=== PATIENT | male | born 1955 | race Caucasian/White ===

== ENCOUNTER → 2016-03-29 | Outpatient (CLI) | payer BC | END | disposition home or self-care (01) | LOC: C.LAB 13:59 | PROVIDERS: ATTEND Urology | DX: N40.1 Benign prostatic hyperplasia with lower urinary tract symptoms (principal); Z12.6 Encounter for screening for malignant neoplasm of bladder ==

== ENCOUNTER → 2016-04-09 | Outpatient (CLI) | payer BC | END | disposition home or self-care (01) | LOC: C.LABSPEC 04-08 11:13 | PROVIDERS: ATTEND Urology | DX: Z12.5 Encounter for screening for malignant neoplasm of prostate (principal); R82.8 Abnormal findings on cytological and histological examination of urine ==

== ENCOUNTER → 2016-10-21 | Outpatient (CLI) | payer BC ==
[2016-10-21 09:43] LABS: CHOLESTEROL/HDL RATIO 3.2
== END | disposition home or self-care (01) ==
LOC: C.LAB 08:26
DX: E78.5 Hyperlipidemia, unspecified (principal)

== ENCOUNTER 2025-02-16 15:34 | Inpatient (IN) ==
[2025-02-16] MEDS: ALBUT/IPRATROP 3MG/0.5MG NEB 3 ML VIAL INH STA (16:13)
--- NOTE | 2025-02-16 16:30 | XRay Report ---
Chest radiograph, one view History: Dyspnea. Comparison: March 25, 2024. Findings: Likely esophageal stent. This is not present on prior exam. Calcified atherosclerotic changes of the thoracic aorta. Numerous pulmonary nodules noted bilaterally. There is persistent elevation of the right hemidiaphragm with absence of a normal right hilar angle secondary to ground glass opacity at this level. There appears to be tenting of the right hemidiaphragm. Poorly defined right cardiophrenic angle. Likely small pleural effusion on the right. Impression: Numerous pulmonary nodules most worrisome for neoplastic process. Infectious etiology is not excluded. Recommend CT for further characterization. Please see above for details. Electronically signed by Ilya Guzman 02-16-2025 4:30 PM
[2025-02-16 16:38] LABS: Base Excess VBG 3.2 mEq/L; HCO3 VBG 27 mmol/L; Oxygen Saturation VBG 100.0 %; PCO2 VBG 37 mmHg (38-50); PO2 VBG 194 mmHg; pH VBG 7.47 (7.36-7.41)
--- NOTE | 2025-02-16 16:47 | Emergency Department Note ---
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 Patient is accompanied by EMS and family who provide additional history. Worsening dyspnea at rest. He thought this was related to oxycodone but continues despite cessation of the medication. The patient follows at the [facility] for ongoing treatment and management of his metastatic sarcoma. Patient is currently managed with gemcitabine with last dose last Friday. They deny fever or chills. No cough or congestion. Denies chest pain or palpitations. No shortness of breath. They deny abdominal pain, nausea and vomiting. No urinary complaints. noticed darker urine. No hematochezia or melena. No recent changes in bowel movements. Patient denies recent changes in medications or OTC supplements. Patient offers no other complaints, today. ADDITIONAL HISTORY OBTAINED: Per HPI Chronic Medical/Social Conditions Affecting Care: Per HPI PAST MEDICAL HISTORY: See Below PAST SURGICAL HISTORY: See Below FAMILY HISTORY: See Below SOCIAL HISTORY: See Below HOME MEDICATIONS: See Below ALLERGIES: See Below VITALS: See Below PHYSICAL EXAMINATION: GENERAL: Sitting up in bed, alert, ill appearing, well nourished, no distress, non-toxic EYE EXAM: conjunctival pallor. PERRL and EOM's grossly intact. OROPHARYNX: no exudate, no erythema, lips, buccal mucosa, and tongue normal and mucous membranes are moist NECK: supple, no nuchal rigidity, no adenopathy, non-tender LUNGS: Tachypnea. Mild expiratory wheezing, Normal chest wall mechanics HEART: no murmurs, tachycardic rate, regular rhythm ABDOMEN: abdomen soft, non-tender, no masses, no rebound or guarding. BACK: Back is symmetrical on inspection and there is no deformity, no midline tenderness, no CVA tenderness. SKIN: no rashes and no bruising UPPER EXTREMITIES: upper extremities are grossly normal. LOWER EXTREMITIES: No pitting edema. NEURO EXAM: Normal sensorium, GCS 15, normal speech, no gross weakness of arms, no gross weakness of legs. MEDICAL DECISION MAKING: Differential diagnoses includes but not limited to symptomatic anemia, metastatic disease burden, pleural effusion, ACS, unstable angina, dysrhythmia, PNA, hypervolemia/pulmonary edema, CHF exacerbation, COPD exacerbation, PE, pneumothorax, pericardial effusion, cardiac tamponade, anxiety/psychogenic, viral URI In summary, this is a 69 year old male who presented with dyspnea. Differential as above. Nursing notes and pertinent past medical records reviewed. Vital signs reviewed and the patient is hypoxic, tachypneic and tachycardia. History and presentation revealed extensive sarcoma with recent new chemotherapy. Suspect etiologies including worsening metastatic disease or chemotherapy side effect. Physical examination revealed as above. As a result of my initial evaluation, IV access was established and the patient was placed on CCRM. Therapeutics ordered include further oxygenation support with increased LFNC and Duoneb . Diagnostics interpreted by me include EKG and cardiac monitoring as listed below: -Cardiac Monitoring: An order was placed for continuous cardiac monitoring. The monitor shows a rate of 100-120 with regular rhythm. -ECG: Sinus tachycardia at a rate of [address] segment changes to suggest STEMI. Intervals are within normal limits otherwise. Patient completed laboratory studies and imaging. Results independently interpreted by me are severe anemia and mild thrombocytopenia. There is no significant electrolyte derangements or significant kidney dysfunction from baseline. No changes in LFTs. The patient was managed with close monitoring and duoneb. Duoneb failed to improve symptoms. I discussed with patient symptoms today are likely multifactorial. His symptoms are consistent with acute on chronic hypoxemic respiratory failure with increased level of nasal cannula use and dyspnea at rest. This is likely due to to increasing tumor burden of his lung parenchyma as well as right sided pleural effusion. I do feel there is a significant factor of his symptoms regarding his acute anemia from baseline. He has only required 1 blood transfusion in the past. The patient is likely experiencing acute anemia in the setting of recent initiation of gemcitabine as hematologic toxicity is a common side effect. Other known side effects include capillary leak syndrome and hypersensitivity reactions. Could be a component of pulmonary toxicity or increased edema as well. The patient and his were consented for blood products. Irradiated blood products with 2 units were ordered. Given concerns for tenuous volume status and pulmonary dysfunction, will run 2 units of blood products each over 4 hours. Patient require hospital admission. He may require thoracentesis when he is stabilized from a blood product standpoint. Ultimately, the decision was made to admit the patient for symptomatic anemia, metastatic cancer with lung burden and large pleural effusion. I discussed the case with the hospitalist service via telephone/Tiger[employer] and they are agreeable to admit the patient to their services. Based on the above, including the patient's age, coexisting illnesses, labs, imaging, and exam findings the decision to treat as an inpatient. I discussed the patient with the hospitalist team who recommended admission to their services. They received the medications, treatments, interventions indicated above and their condition remained guarded. I discussed my findings with the patient and their family and they understand and agree with the treatment plan. All patient / family questions were answered to their satisfaction. Please note there was delay in blood transfusion as the lab struggled with obtaining blood for T&S. I assisted utilizing US and able to obtain labs. I again asked nursing staff to reach out to the line team for further PIV establishment ([id number]). Patient was originally discussed with Dr. Reyes for admission. Patient was then discussed with Dr. Francis. From , he follows with [facility] and [employer] HATCH[employer] INSPECTOR can be reached at [phone]. Attempted call without success. Will touch base with [facility] team to discuss his presentation, today ([id number]). Discussed with Dr. Ascencio's colleague, Dr. Keller. He does agree presentation today is multifactorial. He does think the patient would benefit from transfusion. He would not transfuse platelets at this time. He does recommend a/c hold and potential thoracentesis/CT in the coming days. Consults/Care Managements Discussions: Per [facility] treatment provided: See above Procedures: None Critical Care: I have personally spent 35 minutes of critical care time in direct management of this patient. This includes bedside care, interpretation of diagnostic studies, and testing, discussion with consultants, patient, and family members, and other require inpatient management activities. This 35 minutes is in excess of all separately billable procedures. The chart was completed utilizing [employer] voice recognition software. Grammatical errors, random word insertions, pronoun errors, and incomplete sentences are an occasional consequence of this system due to software limitations, ambient noise, and hardware issues. Any formal questions or concerns about the content, text, or information contained within the body of this dictation should be directly addressed to the physician for clarification. 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) Symptomatic anemia (Acute) Pleural effusion on right (Acute) Metastatic sarcoma to lung (Chronic) Benign prostatic hyperplasia with urinary obstruction (Chronic) Medical History (Updated 02/17/25 @ 17:52 by Vlad Ariza DO) Actinic keratosis Gross hematuria Surgical History (Updated 02/17/25 @ 10:39 by Garcia Gonzales DO) S/P lobectomy of lung Social History Smoking Status: Never smoker Hx Alcohol Use: No Hx Substance Use: No Preferred Language: Persian Communication Ability: Effective Horticultural Worker Required: No Beliefs That Will Affect Care: None Current Living Situation: Spouse Feels Safe at Home: Yes Safety Concerns: Feels Safe At This Time Assistive Devices: Oxygen - Continuous and Wheelchair Allergies Allergies Allergy/AdvReac Type Severity Reaction Status Date / Time Iodinated Contrast Media Allergy Intermediate TICKLE IN Verified 02/16/25 18:03 THROAT "TOLD NOT TO TAKE" Home Meds Home Medications Medication Instructions Recorded Confirmed apixaban 5 mg tablet (Eliquis) 5 mg PO BID 09/28/20 02/16/25 rosuvastatin 10 mg tablet 10 mg PO HS 09/16/23 02/16/25 vit C 250 mg-E 90 mg-zinc 40 1 tab PO AMPM 09/16/23 02/16/25 mg-copper 1 [id number] chew tablet (PreserVision AREDS-2) cholecalciferol (vitamin D3) 10 50 mcg PO DAILY 02/16/25 02/16/25 mcg/drop (400 unit/drop) oral drops coQ10 (ubiquinol) 200 mg capsule 200 mg PO DAILY 02/16/25 02/16/25 digoxin 125 mcg (0.125 mg) tablet 125 mcg PO DAILY 02/16/25 02/16/25 diltiazem HCl 30 mg tablet 30 mg PO DAILY 02/16/25 02/16/25 tamsulosin 0.4 mg capsule 0.4 mg PO DAILY 02/16/25 02/16/25 Results & Data (ED) Vital Signs Vital Signs - 24 hr 02/16/25 17:42 02/16/25 17:51 02/16/25 18:00 Pulse Rate 120 H 119 H Pulse Rate [Apical] 118 H Pulse Rate from SpO2 Sensor 121 H 119 H Respiratory Rate 34 H 43 H 22 Blood Pressure 116/76 Blood Pressure [Right Arm] 103/72 Blood Pressure Mean 89 Blood Pressure Mean [Right Arm] 82 Pulse Oximetry 100 100 100 Oxygen Delivery Method Nasal Cannula Nasal Cannula Oxygen Flow Rate 3 4 02/16/25 18:42 Pulse Rate Pulse Rate [Apical] Pulse Rate from SpO2 Sensor Respiratory Rate Blood Pressure Blood Pressure [Right Arm] Blood Pressure Mean Blood Pressure Mean [Right Arm] Pulse Oximetry 98 Oxygen Delivery Method Nasal Cannula Oxygen Flow Rate 4 Laboratory Data 02/17/25 16:08 02/17/25 05:26 Lab Results 02/16/25 02/16/25 02/16/25 Range/Units 16:00 16:05 18:29 WBC 5.23 (4.8-10.8) K/ul RBC 2.05 L (4.70-6.10) M/uL Hgb 5.4 L* (14.0-18.0) g/dL Hct 17.6 L* (42.0-52.0) % MCV 85.9 (80.0-100.0) fL MCH 26.3 (25.0-34.0) pg MCHC 30.7 L (32.0-36.0) g/dL RDW Std Deviation 63.5 H (36.4-46.3) fL RDW Coeff of Librado 21.6 H (11.5-14.5) % Plt Count 64 L (130-400) K/uL MPV 10.7 (9.4-12.4) fL Immature Gran % (Auto) 0.4 % Neut % (Auto) 74.7 % Lymph % (Auto) 7.1 % [place] % (Auto) 17.2 % Eos % (Auto) 0.4 % Baso % (Auto) 0.2 % Neut # (Auto) 3.91 (1.40-6.50) K/uL Lymph # (Auto) 0.37 L (1.20-3.40) K/uL [place] # (Auto) 0.90 H (0.11-0.59) K/uL Eos # (Auto) 0.02 (0.00-0.50) K/uL Baso # (Auto) 0.01 (0.00-0.20) K/uL Immature Gran # (Auto) 0.02 (0.01-0.20) K/uL Absolute Nucleated RBC 0.02 (0.00-0.12) K/uL Nucleated RBC % (auto) 0.4 % Polychromasia 1+ Anisocytosis Present VBG pH 7.47 H (7.36-7.41) VBG pCO2 37 L (38-50) mmHg VBG pO2 194 mmHg VBG HCO3 27 mmol/L VBG O2 Saturation 100.0 % VBG Base Excess 3.2 mEq/L Sodium 139 (136-145) mmol/L Potassium 4.1 (3.5-5.1) mmol/L Chloride 103 (98-107) mmol/L Carbon Dioxide 27 (21-32) mmol/L Anion Gap 9 (3-11) BUN 18 (6-23) mg/dl Creatinine 0.34 L (0.6-1.4) mg/dl Est Cr Clr Drug Dosing 189.0 ml/min eGFR 123.28 BUN/Creatinine Ratio 52.9 H (10-20) Glucose 96 (70-99(Fasting)) mg/dl Calcium 8.4 L (8.6-10.3) mg/dl Magnesium 2.0 (1.7-2.4) mg/dl Total Bilirubin 1.3 H (0.2-1.0) mg/dl AST 7 L (13-39) U/L ALT 10 (7-52) U/L Alkaline Phosphatase 157 H (34-104) U/L Troponin I High Sens 5.6 (0-20) pg/ml B-Natriuretic Peptide 44 (0-100) pg/ml Total Protein 5.7 L (6.0-8.3) gm/dl Albumin 2.8 L (3.4-5.0) gm/dl Globulin 2.9 (2.5-4.0) gm/dl Albumin/Globulin Ratio 1.0 (0.9-2) Adenovirus (PCR) Not Detected (NotDetected) B. pertussis DNA (PCR) Not Detected (NotDetected) B.parapertussis DNA PCR Not Detected (NotDetected) C. pneumoniae DNA (PCR) Not Detected (NotDetected) Coronavirus OC43 (PCR) Not Detected (NotDetected) Coronavirus HKU1 (PCR) Not Detected (NotDetected) Coronavirus 229E (PCR) Not Detected (NotDetected) SARS-CoV-2 (PCR) Not Detected (NotDetected) Coronavirus NL63 (PCR) Not Detected (NotDetected) Human Metapneumovir PCR Not Detected (NotDetected) Influenza Type A (PCR) Not Detected (NotDetected) Influenza Type B (PCR) Not Detected (NotDetected) M. pneumoniae (PCR) Not Detected (NotDetected) Parainfluenza 1 (PCR) Not Detected (NotDetected) Parainfluenza 2 (PCR) Not Detected (NotDetected) Parainfluenza 3 (PCR) Not Detected (NotDetected) Parainfluenza 4 (PCR) Not Detected (NotDetected) RSV (PCR) Not Detected (NotDetected) Entero/Rhino (PCR) Not Detected (NotDetected) Blood Type A Positive Blood Type Recheck Antibody Screen NEGATIVE Crossmatch See Detail 02/16/25 Range/Units 18:33 WBC (4.8-10.8) K/ul RBC (4.70-6.10) M/uL Hgb (14.0-18.0) g/dL Hct (42.0-52.0) % MCV (80.0-100.0) fL MCH (25.0-34.0) pg MCHC (32.0-36.0) g/dL RDW Std Deviation (36.4-46.3) fL RDW Coeff of Librado (11.5-14.5) % Plt Count (130-400) K/uL MPV (9.4-12.4) fL Immature Gran % (Auto) % Neut % (Auto) % Lymph % (Auto) % Ziebach % (Auto) % Eos % (Auto) % Baso % (Auto) % Neut # (Auto) (1.40-6.50) K/uL Lymph # (Auto) (1.20-3.40) K/uL [place] # (Auto) (0.11-0.59) K/uL Eos # (Auto) (0.00-0.50) K/uL Baso # (Auto) (0.00-0.20) K/uL Immature Gran # (Auto) (0.01-0.20) K/uL Absolute Nucleated RBC (0.00-0.12) K/uL Nucleated RBC % (auto) % Polychromasia Anisocytosis VBG pH (7.36-7.41) VBG pCO2 (38-50) mmHg VBG pO2 mmHg VBG HCO3 mmol/L VBG O2 Saturation % VBG Base Excess mEq/L Sodium (136-145) mmol/L Potassium (3.5-5.1) mmol/L Chloride (98-107) mmol/L Carbon Dioxide (21-32) mmol/L Anion Gap (3-11) BUN (6-23) mg/dl Creatinine (0.6-1.4) mg/dl Est Cr Clr Drug Dosing ml/min eGFR BUN/Creatinine Ratio (10-20) Glucose (70-99(Fasting)) mg/dl Calcium (8.6-10.3) mg/dl Magnesium (1.7-2.4) mg/dl Total Bilirubin (0.2-1.0) mg/dl AST (13-39) U/L ALT (7-52) U/L Alkaline Phosphatase (34-104) U/L Troponin I High Sens (0-20) pg/ml B-Natriuretic Peptide (0-100) pg/ml Total Protein (6.0-8.3) gm/dl Albumin (3.4-5.0) gm/dl Globulin (2.5-4.0) gm/dl Albumin/Globulin Ratio (0.9-2) Adenovirus (PCR) (NotDetected) B. pertussis DNA (PCR) (NotDetected) B.parapertussis DNA PCR (NotDetected) C. pneumoniae DNA (PCR) (NotDetected) Coronavirus OC43 (PCR) (NotDetected) Coronavirus HKU1 (PCR) (NotDetected) Coronavirus 229E (PCR) (NotDetected) SARS-CoV-2 (PCR) (NotDetected) Coronavirus NL63 (PCR) (NotDetected) Human Metapneumovir PCR (NotDetected) Influenza Type A (PCR) (NotDetected) Influenza Type B (PCR) (NotDetected) M. pneumoniae (PCR) (NotDetected) Parainfluenza 1 (PCR) (NotDetected) Parainfluenza 2 (PCR) (NotDetected) Parainfluenza 3 (PCR) (NotDetected) Parainfluenza 4 (PCR) (NotDetected) RSV (PCR) (NotDetected) Entero/Rhino (PCR) (NotDetected) Blood Type Blood Type Recheck A Positive Antibody Screen Crossmatch Administered Medications Piperacillin Sod/Tazobactam Sod (Zosyn) 4.5 gm in 100 mls @ 25 mls/hr IV Q8H FLOR; Protocol Stop: 02/24/25 01:59 Last Infusion: 02/17/25 13:38 Dose: Infused Documented By: Admin: 02/17/25 09:36 Dose: 25 mls/hr Documented By: Infusion: 02/17/25 05:06 Dose: Infused Documented By: Admin: 02/17/25 01:02 Dose: 25 mls/hr Documented By: JACK Pantoprazole Sodium (Protonix) 40 mg in 10 mls @ 5 mls/min IV DAILY FLOR Stop: 03/19/25 08:59 Last Admin: 02/17/25 09:36 Dose: 5 mls/min Documented By: LOPEZ Multivitamins/Minerals (Cerovite Adv Formula Tab) 1 tab PO DAILY FLOR Stop: 03/18/25 22:25 Last Admin: 02/17/25 09:37 Dose: 1 tab Documented By: Admin: 02/17/25 00:35 Dose: 1 tab Documented By: JACK Rosuvastatin Calcium (Rosuvastatin Calcium 10 Mg Tab) 10 mg PO FLOR Stop: 03/18/25 22:20 Last Admin: 02/16/25 22:47 Dose: 10 mg Documented By: JACK Tamsulosin HCl (Tamsulosin Hcl 0.4 Mg Cap) 0.4 mg PO DAILY FLOR Stop: 03/19/25 08:59 Last Admin: 02/17/25 09:37 Dose: 0.4 mg Documented By: LOPEZ Vitamin D (Cholecalciferol 25 Mcg (1000 Units) Tab) 50 mcg PO DAILY FLOR Stop: 03/19/25 08:59 Last Admin: 02/17/25 09:37 Dose: 50 mcg Documented By: LOPEZ Discontinued Medications Albuterol (Albut/Ipratrop 3mg/0.5mg Neb 3 Ml Vial) 3 ml INH NOW STA Stop: 02/16/25 15:40 Last Admin: 02/16/25 16:13 Dose: 3 ml Documented By: MANDY Hydrocortisone Sodium Succinate (Hydrocortisone Sod Succinate 100 Mg/2 Ml Vial) 100 mg IV NOW STA Stop: 02/16/25 20:05 Last Admin: 02/16/25 21:24 Dose: 100 mg Documented By: ascencion Albumin Human (Albumin 25%) 25 gm in 100 mls @ 50 mls/hr IV Q2H FLOR Stop: 02/17/25 00:14 Last Infusion: 02/17/25 03:35 Dose: Infused Documented By: Admin: 02/17/25 01:35 Dose: 50 mls/hr Documented By: Infusion: 02/16/25 23:28 Dose: Infused Documented By: Admin: 02/16/25 21:28 Dose: 50 mls/hr Documented By: ascencion Hydrocortisone Sodium (Succinate 50 mg/ Syringe) 1 mls @ 4 mls/min IV Q6H FLOR Stop: 03/19/25 01:59 Last Admin: 02/17/25 01:02 Dose: 4 mls/min Documented By: JACK Piperacillin Sod/Tazobactam Sod (Zosyn) 4.5 gm in 100 mls @ 25 mls/hr IV ONE ONE; Protocol Stop: 02/17/25 00:14 Last Admin: 02/17/25 00:34 Dose: Not Given Documented By: JACK Pantoprazole Sodium (Protonix) 40 mg in 10 mls @ 5 mls/min IV NOW ONE Stop: 02/16/25 20:26 Last Admin: 02/16/25 21:28 Dose: 5 mls/min Documented By: ascencion Imaging Data Radiologist's Impression: Chest X-Ray 02/16/25 15:40 Chest radiograph, one view History: Dyspnea. Comparison: March 25, 2024. Findings: Likely esophageal stent. This is not present on prior exam. Calcified atherosclerotic changes of the thoracic aorta. Numerous pulmonary nodules noted bilaterally. There is persistent elevation of the right hemidiaphragm with absence of a normal right hilar angle secondary to ground glass opacity at this level. There appears to be tenting of the right hemidiaphragm. Poorly defined right cardiophrenic angle. Likely small pleural effusion on the right. Impression: Numerous pulmonary nodules most worrisome for neoplastic process. Infectious etiology is not excluded. Recommend CT for further characterization. Please see above for details. Electronically signed by Ilya Guzman 02-16-2025 4:[address] 02/16/25 16:29 CT chest without contrast. History: Extensive sarcoma. Evaluate for pneumonia. Comparison: Correlation earlier same day plain film. Technique: Helical CT imaging of the chest performed without IV contrast Dose reduction techniques were achieved by using automatic exposure control and/or adjustment of mA and/or kV according to patient size and/or use of iterative reconstruction technique. Findings: Loan Operations Manager film demonstrates no abnormality. Lung windows demonstrate numerous bilateral noncalcified pulmonary nodules and a few masses most consistent with metastatic disease. Motion limits portions of the evaluation. Mild ground glass densities and increased reticular markings of the left upper lobe. Absence of right upper lobe consistent with pneumonectomy changes. Soft tissue windows demonstrate superior vena cava stent. Large right-sided pleural effusion. There is a loculated fluid collection along the ventral right hemithorax what appears to be pleural space. Continuation changes consistent with nodules and masses at the level of the pleura along the right pulmonary base most worrisome for for metastases. This extends into the region of the right upper abdominal quadrant. Soft tissue masslike process along the ventral aspect of the left kidney noted. Additional mediastinal nodules. Bone windows demonstrate no acute osseous process. Impression: 1. Numerous bilateral nodules and masses consistent with metastatic disease with likely mediastinal and pleural involvement. Additional indeterminant left renal mass. 2. Ground glass densities with prominent interstitial markings left pulmonary apex. Inflammatory or infectious pneumonitis at this level not excluded. 3. Large right-sided pleural effusion with additional loculated pocket along the ventral right hemithorax. Please see above for details. Electronically signed by Ilya Guzman 02-16-2025 6:08 PM Discharge Plan Visit Data Chief Complaint: Shortness of Breath/Dyspnea Stated Complaint: SOB ED Provider: Vlad Ariza Discharge Problem: Symptomatic anemia, Thrombocytopenia, Acute and chronic respiratory failure, Pleural effusion, Cancer, metastatic to lung Patient Disposition: Admitted As Inpatient Condition: Serious Discharge Instructions Interventions: ED Discharge Assessment Last Done: 02/16/25 22:20
[2025-02-16 16:58] LABS: Alanine Aminotransferase 10.0 U/L (7-52); Albumin Globulin Ratio 1.0 (0.9-2); Albumin Level 2.8 gm/dl (3.4-5.0); Alkaline Phosphatase 157.0 U/L (34-104); Anion Gap 9.0 (3-11); Bilirubin,Total 1.3 mg/dl (0.2-1.0); Blood Urea Nitrogen 18.0 mg/dl (6-23); Calcium 8.4 mg/dl (8.6-10.3); Carbon Dioxide 27.0 mmol/L (21-32); Chloride 103.0 mmol/L (98-107); Creatinine Clr Calc Pharmacy 189.0 ml/min; Globulin 2.9 gm/dl (2.5-4.0); Glucose 96.0 mg/dl (70-99(Fasting)); Magnesium 2.0 mg/dl (1.7-2.4); Potassium 4.1 mmol/L (3.5-5.1); Sodium 139.0 mmol/L (136-145); Total Protein 5.7 gm/dl (6.0-8.3)
[2025-02-16 16:58] LABS: Chlamydia pneumoniae PCR Not Detected (NotDetected); Coronavirus 229E PCR Not Detected (NotDetected); Coronavirus CoV-2 (COVID19)PCR Not Detected (NotDetected); Coronavirus HKU1 PCR Not Detected (NotDetected); Coronavirus NL63 PCR Not Detected (NotDetected); Coronavirus OC43PCR Not Detected (NotDetected); Human Metapneumovirus PCR Not Detected (NotDetected); Parainfluenza Virus 1 PCR Not Detected (NotDetected); Parainfluenza Virus 2 PCR Not Detected (NotDetected); Parainfluenza Virus 3 PCR Not Detected (NotDetected); Parainfluenza Virus 4 PCR Not Detected (NotDetected); Respiratory Syncytial VirusPCR Not Detected (NotDetected); Rhinovirus/Enterovirus PCR Not Detected (NotDetected)
[2025-02-16 17:01] LABS: Hematocrit (blood only) 17.6 % (42.0-52.0); Hemoglobin 5.4 g/dL (14.0-18.0); Mean Corpuscular Hemoglobin 26.3 pg (25.0-34.0); Mean Corpuscular Volume 85.9 fL (80.0-100.0); Platelet Count 64 K/uL (130-400); RDW Standard Deviation 63.5 fL (36.4-46.3); Red Blood Count 2.05 M/uL (4.70-6.10); White Blood Count 5.23 K/ul (4.8-10.8)
[2025-02-16] MEDS ORDERED: SODIUM CHLORIDE 0.9% 100 ML IV PRN (17:01)
[2025-02-16 17:09] LABS: Anisocytosis Present; Immature Granulocytes # (auto) 0.02 K/uL (0.01-0.20); Immature Granulocytes % (auto) 0.4 %; Polychromasia 1+
--- NOTE | 2025-02-16 18:09 | CT Scan Report ---
CT chest without contrast. History: Extensive sarcoma. Evaluate for pneumonia. Comparison: Correlation earlier same day plain film. Technique: Helical CT imaging of the chest performed without IV contrast Dose reduction techniques were achieved by using automatic exposure control and/or adjustment of mA and/or kV according to patient size and/or use of iterative reconstruction technique. Findings: Commutator Inspector film demonstrates no abnormality. Lung windows demonstrate numerous bilateral noncalcified pulmonary nodules and a few masses most consistent with metastatic disease. Motion limits portions of the evaluation. Mild ground glass densities and increased reticular markings of the left upper lobe. Absence of right upper lobe consistent with pneumonectomy changes. Soft tissue windows demonstrate superior vena cava stent. Large right-sided pleural effusion. There is a loculated fluid collection along the ventral right hemithorax what appears to be pleural space. Continuation changes consistent with nodules and masses at the level of the pleura along the right pulmonary base most worrisome for for metastases. This extends into the region of the right upper abdominal quadrant. Soft tissue masslike process along the ventral aspect of the left kidney noted. Additional mediastinal nodules. Bone windows demonstrate no acute osseous process. Impression: 1. Numerous bilateral nodules and masses consistent with metastatic disease with likely mediastinal and pleural involvement. Additional indeterminant left renal mass. 2. Ground glass densities with prominent interstitial markings left pulmonary apex. Inflammatory or infectious pneumonitis at this level not excluded. 3. Large right-sided pleural effusion with additional loculated pocket along the ventral right hemithorax. Please see above for details. Electronically signed by Ilya Guzman 02-16-2025 6:08 PM
[2025-02-16] MEDS ORDERED: ALBUT/IPRATROP 3MG/0.5MG NEB 3 ML VIAL NEB PRN (20:32)
--- NOTE | 2025-02-16 20:35 | History & Physical Report ---
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 He presents to the emergency department with shortness of breath and dyspnea on exertion present over the past number of weeks, worsening over the past 2 days. Workup in the emergency department including laboratories with hemoglobin of 5.4, with report of family noting blood in urine. Patient has had intermittent diarrhea and constipation, typically precipitated by taking a bowel regimen after getting constipated. His overall food intake has been significantly reduced, with subsequent weight loss. He his last meal today was granola and oatmeal at breakfast. EKG and rhythm monitor showed sinus tachycardia and 115-118 range. His last dose of Eliquis was the morning of 02/15. He has been on a course of prednisone a few months ago, to stimulate appetite, but was discontinued due to concern for long-term use of prednisone. The only travel the patient has had is back and forth to [facility]. Patient was referred to the [facility] service for further evaluation and treatment. The ED has pending orders for 2 units of PRBCs to be transfused. Anemia requiring transfusion- Hemoglobin 5.4, with most recent on 12/23/2024 of 10.1. reports that she thinks she has noticed blood in his urine, which she has had a history of. No change in bowel pattern suggestive of blood. He does tend to get constipated, and then after taking a bowel regimen such as MiraLAX x 3 has loose stools for a while. Hemoccult stools ED is ordered 2 units PRBCs, leukoreduced and irradiated. Repeat CBC with differential, chemistry profile, magnesium, PT/INR/PTT in a.m. Hold apixaban, with last dose being the morning of 02/16. 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 Consult pulmonology. Pleural effusion appears loculated as well. Placed on Zosyn 4.5 g IV every 8 hours MRSA swab Respiratory BioFire panel negative DuoNebs every 2 hours as needed Patient was on a course of prednisone for several weeks a few months ago. Give hydrocortisone 100 mg IV now, then 50 mg IV every [address] Ascencio at [facility] A-fib/flutter- Presently in sinus tachycardia with rate 115 118. Heart rate is compensatory at this point. Systolic blood pressure in the low 100s. Checking a digoxin level Otherwise can be continued in the a.m. Hold diltiazem 30 mg which he takes daily. Plan to resume apixaban after thoracentesis, and after verification if there is no GI bleed or significant bleeding. 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 He presents to the emergency department with shortness of breath and dyspnea on exertion present over the past number of weeks, worsening over the past 2 days. Workup in the emergency department including laboratories with hemoglobin of 5.4, with report of family noting blood in urine. Patient has had intermittent diarrhea and constipation, typically precipitated by taking a bowel regimen after getting constipated. His overall food intake has been significantly reduced, with subsequent weight loss. He his last meal today was granola and oatmeal at breakfast. EKG and rhythm monitor showed sinus tachycardia and 115-118 range. His last dose of Eliquis was the morning of 02/15. He has been on a course of prednisone a few months ago, to stimulate appetite, but was discontinued due to concern for long-term use of prednisone. The only travel the patient has had is back and forth to [facility]. Patient was referred to the [facility] service for further evaluation and treatment. The ED has pending orders for 2 units of PRBCs to be transfused. Allergies Allergy/AdvReac Type Severity Reaction Status Date / Time Iodinated Contrast Media Allergy Intermediate TICKLE IN Verified 02/16/25 18:03 THROAT "TOLD NOT TO TAKE" Home Medications Medication Instructions Recorded Confirmed Type apixaban 5 mg tablet (Eliquis) 5 mg PO BID 09/28/20 02/16/25 History rosuvastatin 10 mg tablet 10 mg PO HS 09/16/23 02/16/25 History vit C 250 mg-E 90 mg-zinc 40 1 tab PO AMPM 09/16/23 02/16/25 History mg-copper 1 [id number] chew tablet (PreserVision AREDS-2) cholecalciferol (vitamin D3) 10 50 mcg PO DAILY 02/16/25 02/16/25 History mcg/drop (400 unit/drop) oral drops coQ10 (ubiquinol) 200 mg capsule 200 mg PO DAILY 02/16/25 02/16/25 History digoxin 125 mcg (0.125 mg) tablet 125 mcg PO DAILY 02/16/25 02/16/25 History diltiazem HCl 30 mg tablet 30 mg PO DAILY 02/16/25 02/16/25 History tamsulosin 0.4 mg capsule 0.4 mg PO DAILY 02/16/25 02/16/25 History Past Med/Surg History Problem List (Updated 02/16/25 @ 21:20 by Ramirez Francis MD) Pleural effusion on right Anemia requiring transfusions Metastatic sarcoma to lung Actinic keratosis (Acute) Benign prostatic hyperplasia with urinary obstruction (Acute) Gross hematuria (Acute) Medical History (Updated 02/16/25 @ 21:20 by Ramirez Francis MD) Hypercholesterolemia Atrial fibrillation and flutter Social History Smoking Status: Unknown if ever smoked Preferred Language: Welsh Feels Safe at Home: Yes Review of Systems Review of Systems: The patient denies chest pain, palpitations, cough, lower extremity swelling, sore throat, fevers, chills, sweats, nausea, vomiting, diarrhea , constipation, abdominal pain, pelvic pain, blood in stool, dysuria, urinary frequency or urgency, lightheadedness, dizziness, headache, memory loss, loss of consciousness, rash, focal weakness, numbness or tingling in arms or legs, generalized arthralgias or myalgias, back or neck pain, or night sweats. The review of systems is otherwise negative other than for that already noted ab ove, and at least 10 systems have been reviewed. Physical Exam Physical Exam: The patient is awake, alert and oriented 3, appears thin and fatigued, normocephalic and atraumatic, lying in bed and in no acute distress. HEENT--PERRL, EOMI, mucous membranes and oropharynx dry. Neck--supple. No JVD. No bruits. Thyroid normal, trachea midline, no adenopathy. Heart--normal S1 and S2. No murmurs, rubs or gallops. Lungs--clear bilaterally, no respiratory distress, no accessory muscle use. Abdomen--normal bowel sounds and soft. Nontender. Nondistended Extremities-- No edema. There are good distal pulses b/l. Dermatologic--skin is dry, no rashes. Neurologic--cranial nerves II through XII grossly intact. Rheumatologic--normal range of motion. Psychiatric--normal affect. Results & Data Results & Data Vital Signs (Past 12 Hours) Vital Signs Pulse Pulse Resp BP BP Pulse Ox O2 Del Method 02/16/25 18:42 98 Nasal Cannula 02/16/25 18:00 118 H 22 103/72 100 Nasal Cannula 02/16/25 17:51 119 H 43 H 100 02/16/25 17:42 120 H 34 H 116/76 100 Nasal Cannula 02/16/25 16:56 116 H 02/16/25 15:46 114 H 20 115/66 98 Nasal Cannula 02/16/25 15:46 114 H 20 98 Nasal Cannula 02/16/25 15:46 114 H 20 115/66 98 Nasal Cannula O2 Flow Rate 02/16/25 18:42 4 02/16/25 18:00 4 02/16/25 17:51 02/16/25 17:42 3 02/16/25 16:56 02/16/25 15:46 4 02/16/25 15:46 4 02/16/25 15:46 4 Laboratory Results Laboratory Results WBC 5.23 K/ul (4.8-10.8) 02/16/25 16:05 RBC 2.05 M/uL (4.70-6.10) L 02/16/25 16:05 Hgb 5.4 g/dL (14.0-18.0) L* 02/16/25 16:05 Hct 17.6 % (42.0-52.0) L* 02/16/25 16:05 MCV 85.9 fL (80.0-100.0) 02/16/25 16:05 MCH 26.3 pg (25.0-34.0) 02/16/25 16:05 MCHC 30.7 g/dL (32.0-36.0) L 02/16/25 16:05 RDW Std Deviation 63.5 fL (36.4-46.3) H 02/16/25 16:05 RDW Coeff of Librado 21.6 % (11.5-14.5) H 02/16/25 16:05 Plt Count 64 K/uL (130-400) L 02/16/25 16:05 MPV 10.7 fL (9.4-12.4) 02/16/25 16:05 Immature Gran % (Auto) 0.4 % 02/16/25 16:05 Neut % (Auto) 74.7 % 02/16/25 16:05 Lymph % (Auto) 7.1 % 02/16/25 16:05 [place] % (Auto) 17.2 % 02/16/25 16:05 Eos % (Auto) 0.4 % 02/16/25 16:05 Baso % (Auto) 0.2 % 02/16/25 16:05 Neut # (Auto) 3.91 K/uL (1.40-6.50) 02/16/25 16:05 Lymph # (Auto) 0.37 K/uL (1.20-3.40) L 02/16/25 16:05 Kent # (Auto) 0.90 K/uL (0.11-0.59) H 02/16/25 16:05 Eos # (Auto) 0.02 K/uL (0.00-0.50) 02/16/25 16:05 Baso # (Auto) 0.01 K/uL (0.00-0.20) 02/16/25 16:05 Immature Gran # (Auto) 0.02 K/uL (0.01-0.20) 02/16/25 16:05 Absolute Nucleated RBC 0.02 K/uL (0.00-0.12) 02/16/25 16:05 Nucleated RBC % (auto) 0.4 % 02/16/25 16:05 Polychromasia 1+ 02/16/25 16:05 Anisocytosis Present 02/16/25 16:05 VBG pH 7.47 (7.36-7.41) H 02/16/25 16:05 VBG pCO2 37 mmHg (38-50) L 02/16/25 16:05 VBG pO2 194 mmHg 02/16/25 16:05 VBG HCO3 27 mmol/L 02/16/25 16:05 VBG O2 Saturation 100.0 % 02/16/25 16:05 VBG Base Excess 3.2 mEq/L 02/16/25 16:05 Sodium 139 mmol/L (136-145) 02/16/25 16:05 Potassium 4.1 mmol/L (3.5-5.1) 02/16/25 16:05 Chloride 103 mmol/L (98-107) 02/16/25 16:05 Carbon Dioxide 27 mmol/L (21-32) 02/16/25 16:05 Anion Gap 9 (3-11) 02/16/25 16:05 BUN 18 mg/dl (6-23) 02/16/25 16:05 Creatinine 0.34 mg/dl (0.6-1.4) L 02/16/25 16:05 Est Cr Clr Drug Dosing 189.0 ml/min 02/16/25 16:05 eGFR 123.28 02/16/25 16:05 BUN/Creatinine Ratio 52.9 (10-20) H 02/16/25 16:05 Glucose 96 mg/dl (70-99(Fasting)) 02/16/25 16:05 Calcium 8.4 mg/dl (8.6-10.3) L 02/16/25 16:05 Magnesium 2.0 mg/dl (1.7-2.4) 02/16/25 16:05 Total Bilirubin 1.3 mg/dl (0.2-1.0) H 02/16/25 16:05 AST 7 U/L (13-39) L 02/16/25 16:05 ALT 10 U/L (7-52) 02/16/25 16:05 Alkaline Phosphatase 157 U/L (34-104) H 02/16/25 16:05 Troponin I High Sens 5.6 pg/ml (0-20) 02/16/25 16:05 B-Natriuretic Peptide 44 pg/ml (0-100) 02/16/25 16:05 Total Protein 5.7 gm/dl (6.0-8.3) L 02/16/25 16:05 Albumin 2.8 gm/dl (3.4-5.0) L 02/16/25 16:05 Globulin 2.9 gm/dl (2.5-4.0) 02/16/25 16:05 Albumin/Globulin Ratio 1.0 (0.9-2) 02/16/25 16:05 Adenovirus (PCR) Not Detected (NotDetected) 02/16/25 16:00 B. pertussis DNA (PCR) Not Detected (NotDetected) 02/16/25 16:00 B.parapertussis DNA PCR Not Detected (NotDetected) 02/16/25 16:00 C. pneumoniae DNA (PCR) Not Detected (NotDetected) 02/16/25 16:00 Coronavirus OC43 (PCR) Not Detected (NotDetected) 02/16/25 16:00 Coronavirus HKU1 (PCR) Not Detected (NotDetected) 02/16/25 16:00 Coronavirus 229E (PCR) Not Detected (NotDetected) 02/16/25 16:00 SARS-CoV-2 (PCR) Not Detected (NotDetected) 02/16/25 16:00 Coronavirus NL63 (PCR) Not Detected (NotDetected) 02/16/25 16:00 Human Metapneumovir PCR Not Detected (NotDetected) 02/16/25 16:00 Influenza Type A (PCR) Not Detected (NotDetected) 02/16/25 16:00 Influenza Type B (PCR) Not Detected (NotDetected) 02/16/25 16:00 M. pneumoniae (PCR) Not Detected (NotDetected) 02/16/25 16:00 Parainfluenza 1 (PCR) Not Detected (NotDetected) 02/16/25 16:00 Parainfluenza 2 (PCR) Not Detected (NotDetected) 02/16/25 16:00 Parainfluenza 3 (PCR) Not Detected (NotDetected) 02/16/25 16:00 Parainfluenza 4 (PCR) Not Detected (NotDetected) 02/16/25 16:00 RSV (PCR) Not Detected (NotDetected) 02/16/25 16:00 Entero/Rhino (PCR) Not Detected (NotDetected) 02/16/25 16:00 Blood Type A Positive 02/16/25 18:29 Blood Type Recheck A Positive 02/16/25 18:33 Antibody Screen NEGATIVE 02/16/25 18:29 Crossmatch See Detail 02/16/25 18:29 Impressions Chest X-Ray 02/16/25 15:40 Chest radiograph, one view History: Dyspnea. Comparison: March 25, 2024. Findings: Likely esophageal stent. This is not present on prior exam. Calcified atherosclerotic changes of the thoracic aorta. Numerous pulmonary nodules noted bilaterally. There is persistent elevation of the right hemidiaphragm with absence of a normal right hilar angle secondary to ground glass opacity at this level. There appears to be tenting of the right hemidiaphragm. Poorly defined right cardiophrenic angle. Likely small pleural effusion on the right. Impression: Numerous pulmonary nodules most worrisome for neoplastic process. Infectious etiology is not excluded. Recommend CT for further characterization. Please see above for details. Electronically signed by Ilya Guzman 02-16-2025 4:[address] 02/16/25 16:29 CT chest without contrast. History: Extensive sarcoma. Evaluate for pneumonia. Comparison: Correlation earlier same day plain film. Technique: Helical CT imaging of the chest performed without IV contrast Dose reduction techniques were achieved by using automatic exposure control and/or adjustment of mA and/or kV according to patient size and/or use of iterative reconstruction technique. Findings: Recording Studio Setup Worker film demonstrates no abnormality. Lung windows demonstrate numerous bilateral noncalcified pulmonary nodules and a few masses most consistent with metastatic disease. Motion limits portions of the evaluation. Mild ground glass densities and increased reticular markings of the left upper lobe. Absence of right upper lobe consistent with pneumonectomy changes. Soft tissue windows demonstrate superior vena cava stent. Large right-sided pleural effusion. There is a loculated fluid collection along the ventral right hemithorax what appears to be pleural space. Continuation changes consistent with nodules and masses at the level of the pleura along the right pulmonary base most worrisome for for metastases. This extends into the region of the right upper abdominal quadrant. Soft tissue masslike process along the ventral aspect of the left kidney noted. Additional mediastinal nodules. Bone windows demonstrate no acute osseous process. Impression: 1. Numerous bilateral nodules and masses consistent with metastatic disease with likely mediastinal and pleural involvement. Additional indeterminant left renal mass. 2. Ground glass densities with prominent interstitial markings left pulmonary apex. Inflammatory or infectious pneumonitis at this level not excluded. 3. Large right-sided pleural effusion with additional loculated pocket along the ventral right hemithorax. Please see above for details. Electronically signed by Ilya Guzman 02-16-2025 6:08 PM Code Status & VTE Plan Code Status DNR/DNI VTE Prophylaxis Plan VTE Prophylaxis will be ordered: Yes PG Care Time/CCT Total # of Minutes Spent Total Time Spent with Patient: Total time spent is greater than 50% in coordination of care (as documented) at patient's floor/unit and/or counseling patient: Coding Level of Care Code 75248 INT INP/OBS CARE 3/75MIN Diagnoses Anemia requiring transfusions D64.9 Metastatic sarcoma to lung C78.00; C49.9 Pleural effusion on right J90 Atrial fibrillation and flutter I48.91; I48.92
[2025-02-16] MEDS: HYDROCORTISONE SOD SUCCINATE 100 MG/2 ML VIAL IV STA (21:24)
[2025-02-16] MEDS: ALBUMIN 25% 25 GM/100 ML VIAL IV SCH (21:28)
[2025-02-16] MEDS: PANTOprazole 40 MG/10 ML SYR IV ONE (21:28)
[2025-02-16] MEDS: ROSUVASTATIN CALCIUM 10 MG TAB PO SCH (22:47)
[2025-02-17] MEDS: PIPERACILLIN/TAZOBACTAM 4.5 GM/100 ML BAG IV ONE (00:34)
[2025-02-17] MEDS: CEROVITE ADV FORMULA TAB PO SCH (00:35)
[2025-02-17] MEDS: HYDROCORTISONE SOD 50 MG in SYRINGE 0 ML IV SCH (01:02)
[2025-02-17] MEDS: PIPERACILLIN/TAZOBACTAM 4.5 GM/100 ML BAG IV SCH (01:02)
[2025-02-17 05:47] LABS: Hematocrit (blood only) 23.5 % (42.0-52.0); Hemoglobin 7.6 g/dL (14.0-18.0); Immature Granulocytes # (auto) 0.02 K/uL (0.01-0.20); Immature Granulocytes % (auto) 0.5 %; Mean Corpuscular Hemoglobin 27.2 pg (25.0-34.0); Mean Corpuscular Volume 84.2 fL (80.0-100.0); Platelet Count 74 K/uL (130-400); RDW Standard Deviation 53.1 fL (36.4-46.3); Red Blood Count 2.79 M/uL (4.70-6.10); White Blood Count 3.85 K/ul (4.8-10.8)
[2025-02-17 06:05] LABS: Alanine Aminotransferase 8.0 U/L (7-52); Albumin Globulin Ratio 1.1 (0.9-2); Albumin Level 2.8 gm/dl (3.4-5.0); Alkaline Phosphatase 137.0 U/L (34-104); Anion Gap 8.0 (3-11); Bilirubin,Total 1.5 mg/dl (0.2-1.0); Blood Urea Nitrogen 17.0 mg/dl (6-23); Calcium 8.1 mg/dl (8.6-10.3); Carbon Dioxide 26.0 mmol/L (21-32); Chloride 104.0 mmol/L (98-107); Creatinine Clr Calc Pharmacy 173.7 ml/min; Globulin 2.6 gm/dl (2.5-4.0); Glucose 132.0 mg/dl (70-99(Fasting)); Magnesium 2.0 mg/dl (1.7-2.4); Potassium 4.3 mmol/L (3.5-5.1); Sodium 138.0 mmol/L (136-145); Total Protein 5.4 gm/dl (6.0-8.3)
[2025-02-17 06:14] LABS: INR 1.3 (0.9-1.1); Partial Thromboplastin Time 36 Seconds (21-31); Polychromasia 2+; Prothrombin Time 13.5 Seconds (9.0-12.0)
--- NOTE | 2025-02-17 08:43 | Pulmonary Consultation ---
Date of Consultation February 17, 2025 Assessment & Plan (1) Pleural effusion on right: (2) Anemia requiring transfusions: (3) Metastatic sarcoma to lung: Plan Impression: 69-year-old male with widely metastatic sarcoma including pleural mets and associated pleural effusion admitted with shortness of breath found to be significantly anemic. Recommendations: 1. Dyspnea: Likely multifactorial. The patient is having significant pulmonary compression due to the pleural-based mets. There is a moderate-sized effusion as well. His anemia was likely contributing as well. He is improved after transfusion but remains tachycardic and is experiencing some shortness of breath. 2. Pleural effusion: Discussed with the patient and his on the phone. Think we could attempt diagnostic/therapeutic ultrasound to see if this offers him a clinical benefit. Patient is at increased risk of bleeding is advised them that the catheter could irritate some of the pleural-based tumors and cause bleeding. If bleeding is encountered, he may require a chest tube and potentially transfer to a higher level of care for interventional radiology or thoracoscopy. While the risk is increased, I do not think it is prohibitive unless I cannot find an ultrasound window to access the fluid. The patient is agreeable to proceed. 3. Hypoxemia: Multifactorial. Continue supplemental oxygen. The patient has supplemental oxygen set up at home. 4. It appears the patient's disease is progressive. Defer additional therapy to his medical oncology team however reengaging palliative care may be reasonable at this point in time as the patient's performance status may preclude additional attempts at cytotoxic therapy. The above recommendations and plan were extensively discussed with the patient. Questions were answered to the best my ability. He expressed understanding and is in agreement with the plan as outlined History of Present Illness Attending Physician: Garcia Gonzales, History of Present Illness Asked by hospitalist to assist in evaluation management this patient with shortness of breath, metastatic sarcoma, and pleural effusion. History is obtained from discussion with the patient as well as review of electronic medical record. The patient is a 69-year-old male with a history of metastatic sarcoma. He has been followed at the [facility]. He was on hospice previously but improved enough to be able to tolerate some additional rounds of chemotherapy. He he just darted those a few weeks ago. He states that since s tarting them he has had increasing shortness of breath as well as fatigue. Yesterday his shortness of breath became severe enough that he required evaluation in the emergency room. Chest x-ray and CT scan showed small pleural effusion as well as multiple pleural-based and parenchymal nodules consistent with metastatic disease. The patient was profoundly anemic as well. He was transfused overnight and states that he feels better but is continuing to experience some shortness of breath. Patient states that his oncology team at the [facility] had discussed previously sending the patient to radiology or pulmonary for consideration of a thoracentesis although they also stated there was an increased risk of potential bleeding given the pleural-based tumors. The patient has not had significant fevers or chills. No chest trauma. He is on oxygen at home. Allergies Allergy/AdvReac Type Severity Reaction Status Date / Time Iodinated Contrast Media Allergy Intermediate TICKLE IN Verified 02/16/25 18:03 THROAT "TOLD NOT TO TAKE" Home Medications Medication Instructions Recorded Confirmed Type apixaban 5 mg tablet (Eliquis) 5 mg PO BID 09/28/20 02/16/25 History rosuvastatin 10 mg tablet 10 mg PO HS 09/16/23 02/16/25 History vit C 250 mg-E 90 mg-zinc 40 1 tab PO AMPM 09/16/23 02/16/25 History mg-copper 1 [id number] chew tablet (PreserVision AREDS-2) cholecalciferol (vitamin D3) 10 50 mcg PO DAILY 02/16/25 02/16/25 History mcg/drop (400 unit/drop) oral drops coQ10 (ubiquinol) 200 mg capsule 200 mg PO DAILY 02/16/25 02/16/25 History digoxin 125 mcg (0.125 mg) tablet 125 mcg PO DAILY 02/16/25 02/16/25 History diltiazem HCl 30 mg tablet 30 mg PO DAILY 02/16/25 02/16/25 History tamsulosin 0.4 mg capsule 0.4 mg PO DAILY 02/16/25 02/16/25 History Patient History Medical History (Updated 02/16/25 @ 21:20 by Ramirez Francis MD) Hypercholesterolemia Atrial fibrillation and flutter Social History Smoking Status: Never smoker Hx Alcohol Use: No Hx Substance Use: No Preferred Language: Bruneian Communication Ability: Effective Air Traffic Control Equipment Repairer Required: No Beliefs That Will Affect Care: None Current Living Situation: Spouse Feels Safe at Home: Yes Safety Concerns: Feels Safe At This Time Assistive Devices: Glasses, Oxygen - Continuous, Walker and Wheelchair Review of Systems Review of Systems: Please refer to admission H&P. No additions or deletions Physical Exam Constitutional: + ill appearing and + thin Neck: trachea midline, no thyromegaly Respiratory: + labored breathing and + tachypneic Auscultation: + diminished lung sounds Cardiovascular: RRR, no murmur, no edema Gastrointestinal (Abdomen): normal bowel sounds, soft, nontender, no hepatosplenomegaly Musculoskeletal: Extremities: extremities normal to inspection Skin: no rashes, warm and dry Neurologic: Nonfocal exam Lymphatic: no cervical lymphadenopathy Results & Data Results & Data Vital Signs (Past 12 Hours) Vital Signs Temp Pulse Pulse Resp BP BP Pulse Ox 02/17/25 07:03 101 H 02/17/25 05:04 36.7 C 105 H 24 126/81 94 02/17/25 04:25 36.8 C 101 H 26 H 93 02/17/25 03:25 36.8 C 109 H 28 H 132/78 92 02/17/25 02:25 37.0 C 108 H 28 H 135/79 94 02/17/25 01:55 36.8 C 108 H 28 H 114/72 95 02/17/25 01:42 36.7 C 107 H 28 H 115/75 95 02/17/25 01:40 36.6 C 107 H 28 H 115/75 95 02/17/25 01:40 36.7 C 106 H 28 H 115/75 93 02/17/25 01:21 37.2 C 109 H 28 H 128/69 95 02/17/25 00:14 36.7 C 107 H 28 H 115/69 95 02/16/25 23:14 37.2 C 114 H 26 H 96 02/16/25 23:00 02/16/25 23:00 36.9 C 97 02/16/25 22:21 02/16/25 22:14 36.9 C 119 H 26 H 133/68 98 02/16/25 21:44 37.1 C 116 H 20 119/73 98 02/16/25 21:29 36.6 C 119 H 20 107/72 100 02/16/25 21:12 37.2 C 117 H 20 121/73 100 02/16/25 21:00 116 H 20 119/73 98 Pulse Ox O2 Del Method O2 Del Method O2 Flow Rate O2 Flow Rate 02/17/25 07:03 02/17/25 05:04 4 02/17/25 04:25 4 02/17/25 03:25 4 02/17/25 02:25 4 02/17/25 01:55 4 02/17/25 01:42 4 02/17/25 01:40 4 02/17/25 01:40 4 02/17/25 01:21 4 02/17/25 00:14 4 02/16/25 23:14 4 02/16/25 23:00 Nasal Cannula 4 02/16/25 23:00 Nasal Cannula 4 02/16/25 22:21 97 Nasal Cannula 4 02/16/25 22:14 4 02/16/25 21:44 4 02/16/25 21:29 4 02/16/25 21:12 4 02/16/25 21:00 Nasal Cannula 4 Critical Care Results & Data Vital Signs (Past 12 Hours) Vital Signs Temp Pulse Pulse Resp BP BP Pulse Ox 02/17/25 07:03 101 H 02/17/25 05:04 36.7 C 105 H 24 126/81 94 02/17/25 04:25 36.8 C 101 H 26 H 93 02/17/25 03:25 36.8 C 109 H 28 H 132/78 92 02/17/25 02:25 37.0 C 108 H 28 H 135/79 94 02/17/25 01:55 36.8 C 108 H 28 H 114/72 95 02/17/25 01:42 36.7 C 107 H 28 H 115/75 95 02/17/25 01:40 36.6 C 107 H 28 H 115/75 95 02/17/25 01:40 36.7 C 106 H 28 H 115/75 93 02/17/25 01:21 37.2 C 109 H 28 H 128/69 95 02/17/25 00:14 36.7 C 107 H 28 H 115/69 95 02/16/25 23:14 37.2 C 114 H 26 H 96 02/16/25 23:00 02/16/25 23:00 36.9 C 97 02/16/25 22:21 02/16/25 22:14 36.9 C 119 H 26 H 133/68 98 02/16/25 21:44 37.1 C 116 H 20 119/73 98 02/16/25 21:29 36.6 C 119 H 20 107/72 100 02/16/25 21:12 37.2 C 117 H 20 121/73 100 02/16/25 21:00 116 H 20 119/73 98 Pulse Ox O2 Del Method O2 Del Method O2 Flow Rate O2 Flow Rate 02/17/25 07:03 02/17/25 05:04 4 02/17/25 04:25 4 02/17/25 03:25 4 02/17/25 02:25 4 02/17/25 01:55 4 02/17/25 01:42 4 02/17/25 01:40 4 02/17/25 01:40 4 02/17/25 01:21 4 02/17/25 00:14 4 02/16/25 23:14 4 02/16/25 23:00 Nasal Cannula 4 02/16/25 23:00 Nasal Cannula 4 02/16/25 22:21 97 Nasal Cannula 4 02/16/25 22:14 4 02/16/25 21:44 4 02/16/25 21:29 4 02/16/25 21:12 4 02/16/25 21:00 Nasal Cannula 4 Lab & Micro Results (Past 24 Hours) RBC 2.79 M/uL (4.70-6.10) L 02/17/25 WBC 3.85 K/ul (4.8-10.8) L 02/17/25 Hgb 7.6 g/dL (14.0-18.0) L 02/17/25 Hct 23.5 % (42.0-52.0) L 02/17/25 MCV 84.2 fL (80.0-100.0) 02/17/25 MCH 27.2 pg (25.0-34.0) 02/17/25 MCHC 32.3 g/dL (32.0-36.0) 02/17/25 RDW Standard Deviation 53.1 fL (36.4-46.3) H 02/17/25 RDW Coefficient of Variation 18.7 % (11.5-14.5) H 02/17/25 Plt Count 74 K/uL (130-400) L 02/17/25 MPV 10.9 fL (9.4-12.4) 02/17/25 Nucleated Red Blood Cells % (auto) 0.8 % 02/17 Nucleated RBC Absolute Count (auto) 0.03 K/uL (0.00-0.12) 1 04/19/24 Neutrophils (%) (Auto) 86.8 % 02/17/25 Lymphocytes (%) (Auto) 6.5 % 02/17/25 Monocytes # (Auto) 0.24 K/uL (0.11-0.59) 02/17/25 Eosinophils # (Auto) 0.00 K/uL (0.00-0.50) 02/17/25 Immature Granulocyte % (Auto) 0.5 % 02/17/25 Neutrophils # (Auto) 3.34 K/uL (1.40-6.50) 02/17/25 Lymphocytes # (Auto) 0.25 K/uL (1.20-3.40) L 02/17/25 Monocytes # (Auto) 0.24 K/uL (0.11-0.59) 02/17/25 Eosinophils # (Auto) 0.00 K/uL (0.00-0.50) 02/17/25 Basophils # (Auto) 0.00 K/uL (0.00-0.20) 02/17/25 Immature Granulocyte # (Auto) 0.02 K/uL (0.01-0.20) 5 Polychromasia 2+ 02/17/25 Anisocytosis Present 02/16/25 Na 138 mmol/L (136-145) 02/17/25 K 4.3 mmol/L (3.5-5.1) 02/17/25 Cl 104 mmol/L (98-107) 02/17/25 CO2 26 mmol/L (21-32) 02/17/25 Anion Gap 8 (3-11) 02/17/25 BUN 17 mg/dl (6-23) 02/17/25 Creatinine 0.37 mg/dl (0.6-1.4) L 02/17/25 BUN/Creatinine Ratio 45.9 (10-20) H 02/17/25 Glu 132 mg/dl (70-99(Fasting)) H 02/17/25 Ca 8.1 mg/dl (8.6-10.3) L 02/17/25 Total Bilirubin 1.5 mg/dl (0.2-1.0) H 02/17/25 AST 6 U/L (13-39) L 02/17/25 ALT 8 U/L (7-52) 02/17/25 Alkaline Phosphatase 137 U/L (34-104) H 02/17/25 TP 5.4 gm/dl (6.0-8.3) L 02/17/25 Albumin 2.8 gm/dl (3.4-5.0) L 02/17/25 Globulin 2.6 gm/dl (2.5-4.0) 02/17/25 Albumin/Globulin Ratio 1.1 (0.9-2) 02/17/25 Mg 2.0 mg/dl (1.7-2.4) 02/17/25 05:26 Calcium Level 8.1 mg/dl (8.6-10.3) L 02/17/25 05:26 Prothromb Time International Ratio 1.3 (0.9-1.1) H 02/17/25 05 :26 Venous Blood pH 7.47 (7.36-7.41) H 02/16/25 16:05 Venous Blood Partial Pressure CO2 37 mmHg (38-50) L 02/16/25 16 :05 Venous Blood Partial Pressure O2 194 mmHg 02/16/25 16:05 Venous Blood HCO3 27 mmol/L 02/16/25 16:05 Venous Blood Base Excess 3.2 mEq/L 02/16/25 16:05 Venous Blood Oxygen Saturation 100.0 % 02/16/25 16:05 Diagnostic Findings (Past 24 Hours) Chest X-Ray 02/16/25 15:40 Chest radiograph, one view History: Dyspnea. Comparison: March 25, 2024. Findings: Likely esophageal stent. This is not present on prior exam. Calcified atherosclerotic changes of the thoracic aorta. Numerous pulmonary nodules noted bilaterally. There is persistent elevation of the right hemidiaphragm with absence of a normal right hilar angle secondary to ground glass opacity at this level. There appears to be tenting of the right hemidiaphragm. Poorly defined right cardiophrenic angle. Likely small pleural effusion on the right. Impression: Numerous pulmonary nodules most worrisome for neoplastic process. Infectious etiology is not excluded. Recommend CT for further characterization. Please see above for details. Electronically signed by Ilya Guzman 02-16-2025 4:[address] 02/16/25 16:29 CT chest without contrast. History: Extensive sarcoma. Evaluate for pneumonia. Comparison: Correlation earlier same day plain film. Technique: Helical CT imaging of the chest performed without IV contrast Dose reduction techniques were achieved by using automatic exposure control and/or adjustment of mA and/or kV according to patient size and/or use of iterative reconstruction technique. Findings: Surgical Dressing Maker film demonstrates no abnormality. Lung windows demonstrate numerous bilateral noncalcified pulmonary nodules and a few masses most consistent with metastatic disease. Motion limits portions of the evaluation. Mild ground glass densities and increased reticular markings of the left upper lobe. Absence of right upper lobe consistent with pneumonectomy changes. Soft tissue windows demonstrate superior vena cava stent. Large right-sided pleural effusion. There is a loculated fluid collection along the ventral right hemithorax what appears to be pleural space. Continuation changes consistent with nodules and masses at the level of the pleura along the right pulmonary base most worrisome for for metastases. This extends into the region of the right upper abdominal quadrant. Soft tissue masslike process along the ventral aspect of the left kidney noted. Additional mediastinal nodules. Bone windows demonstrate no acute osseous process. Impression: 1. Numerous bilateral nodules and masses consistent with metastatic disease with likely mediastinal and pleural involvement. Additional indeterminant left renal mass. 2. Ground glass densities with prominent interstitial markings left pulmonary apex. Inflammatory or infectious pneumonitis at this level not excluded. 3. Large right-sided pleural effusion with additional loculated pocket along the ventral right hemithorax. Please see above for details. Electronically signed by Ilya Guzman 02-16-2025 6:08 PM I & O Totals 24 Hours 02/16/25 02/17/25 02/18/25 06:59 06:59 06:59 Intake Total 920 / 920 Output Total 100 / 100 Balance 820 / 820 Cumulative 02/16/25 15:25 thru 02/17/25 06:35 Intake Total 920 Output Total 100 Balance 820 RT Ventilator Mngmt (Last Documented) Ventilator Ordered Settings Respiratory Rate 24 02/17/25 05:04 Ventilator - PT Measurements Respiratory Rate 24 PG Care Time/CCT Total # of Minutes Spent Total Time Spent with Patient: Total time spent is greater than 50% in coordination of care (as documented) at patient's floor/unit and/or counseling patient: Coding Level of Care Code 65537 INT INP/OBS CARE MIN Diagnoses Pleural effusion on right J90 Anemia requiring transfusions D64.9 Metastatic sarcoma to lung C78.00; C49.9
[2025-02-17] MEDS ORDERED: NON-FORMULARY MEDICATION (Coq10 (Ubiquinol) 200 mg Capsule) PO SCH (09:00)
--- NOTE | 2025-02-17 09:20 | Procedure Note ---
Procedure Note Date of Service February 17, 2025 Procedure: Diagnostic therapeutic ultrasound-guided catheter thoracentesis Packaging Mechanic: Dr. Hesham Gray Indication: Pleural effusion Consent: Signed by patient and verified with timeout prior to procedure Anesthesia: 8 mL's 1% lidocaine without epinephrine local. Procedure: Consent was verified and timeout performed. Appropriate imaging studies were reviewed prior to the procedure. Patient was placed in a seated position and limited thoracic ultrasound was performed of the bilateral chest. No significant effusion was identified on the left. The right hemithorax demonstrated a moderate size effusion with multiple pleural-based metastases.. Site appropriate for thoracentesis was selected on the lateral aspect of the right posterior chest. The skin was prepped and draped in normal sterile fashion. Lidocaine was used for local analgesia. Fluid was aspirated via the finder needle under direct ultrasound visualization. A small skin ayaka was made with the scalpel and the catheter over the needle apparatus was advanced over the rib into the pleural space. Using the syringe one-way valve system, a total of 900 mL's of bloody fluid was removed. Procedure was terminated due to patient experiencing some pain. The catheter was removed and observed to be intact. A sterile dressing was applied. Post procedure chest x-ray was ordered. Fluid was sent for cytology, cell count differential, Gram stain and culture, AFB stain and culture, LDH, pH, glucose, total protein. The patient tolerated the procedure well without obvious complication The bloody effusion is likely contributing to the patient's anemia and is sequelae of tumors intermittently bleeding. Recommend normalizing coagulation panel [facility] [place] Procedure Codes (Charges) Pulmonary/Thoracic Procedure 1: Pulmonary and Thoracic: 63478 Thoracentesis w imaging Coding CPT Codes Pulmonary/Thoracic - Pulmonary and Thoracic: 53290 Thoracentesis w imaging ([id number]) Additional Codes Date of Service (PG.SURGERY)
[2025-02-17] MEDS: PANTOprazole 40 MG/10 ML SYR IV SCH (09:36)
[2025-02-17] MEDS: TAMSULOSIN HCL 0.4 MG CAP PO SCH (09:37)
[2025-02-17] MEDS: CHOLECALCIFEROL 25 MCG (1000 UNITS) TAB PO SCH (09:37)
--- NOTE | 2025-02-17 09:42 | XRay Report ---
SINGLE VIEW CHEST CLINICAL HISTORY: Status post thoracentesis. FINDINGS: 2 AP, portable, upright chest radiographs are compared to chest x-ray and chest CT dated . A stent is again seen within the superior vena cava. The heart is top normal for projection and noting atherosclerotic calcification of the thoracic aorta. There is persistent elevation of the right hemidiaphragm with a layering right pleural effusion. No pneumothorax is seen post procedure. Innumerable pulmonary nodules are again noted and consistent with extensive pulmonary metastatic dise ase. The skeletal structures are osteopenic. The bony thorax is grossly intact. IMPRESSION: 1. No pneumothorax is identified post procedure. 2. There is a residual right pleural effusion. 3. Multifocal pulmonary metastatic disease is again noted. ACT 112: Negative or not required by law. Electronically signed by: Yrn Leo M.D. 02/17/2025 9:40 AM
[2025-02-17 09:44] LABS: Appearance Pleural Fluid Bloody; Color Pleural Fluid Red; RBC Pleural Fluid Auto 275000 /uL; Source Pleural Fluid Right Lung; WBC Pleural Fluid Auto 620 /uL
[2025-02-17] MEDS ORDERED: SODIUM CHLORIDE 0.9% 100 ML IV PRN ×2 (10:10→16:32)
--- NOTE | 2025-02-17 10:43 | Hospitalist Progress Note ---
Date of Service February 17, 2025 Assessment & Plan (1) Symptomatic anemia: (2) Soft tissue sarcoma of right thigh: (3) Thrombocytopenic: (4) Permanent atrial fibrillation: (5) S/P lobectomy of lung: (6) Hemothorax on right: Plan In summary this is a 69-year-old male who presents with progressive dyspnea on exertion and shortness of breath at rest associated with fatigue found to have severe anemia requiring blood transfusion #Symptomatic anemia//thrombocytopenia//hemothorax//stage IV metastatic soft tissue sarcoma Patient admitted for severe hemoglobin measure 5.6 status post 2 units packed red blood cell transfusion overnight on 02/16 with appropriate response, morning hemoglobin 7.4; underwent thoracentesis on 02/17 found to have bloody effusion, pulmonology requesting treatment of patient's coagulation panel and thrombocytopenia to assist with chemo stability; given the patient's INR is less than 1.7, there is no evidence for infusion of products such as cryoprecipitate or FFP however given the patient's thrombocytopenia, we will administer 2 units of platelets to assist with hemostasis; in total, suspect that the patient's bleeding was likely precipitated by friable malignant tissue Follow daily CBC Administer 2 units platelets Pulmonology consulted #Permanent atrial fibrillation Continue rate controlling medication at this time; anticipate resuming patient's Eliquis on 02/19 Continue to hold Eliquis at this time The remainder the patient's chronic medical conditions are stable and do not require adjustment to their outpatient regimen at this time Admission and Anticipated Discharge Date Admission Date: February 16, 2025 Subjective Mr. Regalado is a 69-year-old male whose active medical conditions include stage IV soft tissue sarcoma, atrial fibrillation, hyperlipidemia, BPH with LUTS among other chronic medical conditions who presented to the [facility] on 02/16 due to progressive dyspnea on exertion as well as shortness of breath at rest found to have a large right pleural effusion in addition to severe symptomatic anemia without ping source of blood loss requiring transfusion. No acute overnight events; the patient feels improved this morning though still with residual symptoms primarily consisting of shortness of breath, discomfort with deep inhalation. Review of Systems Review of Systems: Review of constitutional, cardiovascular, pulmonary, genitourinary, gastrointestinal systems was unremarkable except for pertinent positive and negative findings discussed above Physical Exam Physical Exam: General: Cachectic male in no acute distress Vital Signs: Reviewed; tachypneic, mildly tachycardic HEENT: Moist mucous membranes; temporal wasting; extraocular motion intact, pupils equally round and reactive to light Neck: No tracheal deviation Pulmonary: Symmetrically reduced chest wall excursion with increased respiratory rate; diminished air movement throughout the entire right lung field, without abnormal lung sounds on the left Cardiovascular: Irregularly irregular rhythm with tachycardic rate; S1 and S2 normal; no murmurs, rubs, or gallops appreciated; right radial pulse 2+; no notable lower extremity edema Gastrointestinal: Soft, nondistended Musculoskeletal: Sarcopenia Neurologic: Cranial nerves II through XII grossly intact; no discernible focal weakness or paresthesia Results & Data Results & Data Vital Signs (Past 12 Hours) Vital Signs Temp Pulse Pulse Resp BP BP Pulse Ox 02/17/25 10:06 02/17/25 08:40 36.5 C 112 H 22 122/79 98 02/17/25 07:03 101 H 02/17/25 05:04 36.7 C 105 H 24 126/81 94 02/17/25 04:25 36.8 C 101 H 26 H 93 02/17/25 03:25 36.8 C 109 H 28 H 132/78 92 02/17/25 02:25 37.0 C 108 H 28 H 135/79 94 02/17/25 01:55 36.8 C 108 H 28 H 114/72 95 02/17/25 01:42 36.7 C 107 H 28 H 115/75 95 02/17/25 01:40 36.6 C 107 H 28 H 115/75 95 02/17/25 01:40 36.7 C 106 H 28 H 115/75 93 02/17/25 01:21 37.2 C 109 H 28 H 128/69 95 02/17/25 00:14 36.7 C 107 H 28 H 115/69 95 02/16/25 23:14 37.2 C 114 H 26 H 96 02/16/25 23:00 02/16/25 23:00 36.9 C 97 O2 Del Method O2 Flow Rate 02/17/25 10:06 Nasal Cannula 3 02/17/25 08:40 Nasal Cannula 4 02/17/25 07:03 02/17/25 05:04 4 02/17/25 04:25 4 02/17/25 03:25 4 02/17/25 02:25 4 02/17/25 01:55 4 02/17/25 01:42 4 02/17/25 01:40 4 02/17/25 01:40 4 02/17/25 01:21 4 02/17/25 00:14 4 02/16/25 23:14 4 02/16/25 23:00 Nasal Cannula 4 02/16/25 23:00 Nasal Cannula 4 Laboratory Results Hemoglobin 7.6, platelet count 74 INR 1.3, PT 13.5, APTT 36 Elevated total bilirubin 1.5 with normal transaminases PG Care Time/CCT Total # of Minutes Spent Total Time Spent with Patient: Total time spent is greater than 50% in coordination of care (as documented) at patient's floor/unit and/or counseling patient: Coding Level of Care Code 31920 SUB INP/OBS CARE 3/50MIN Diagnoses Symptomatic anemia D64.9 Soft tissue sarcoma of right thigh C49.21 Thrombocytopenic D69.6 Permanent atrial fibrillation I48.21 S/P lobectomy of lung Z90.2 Hemothorax on right J94.2
[2025-02-17 10:53] LABS: Lymphocytes, Fluid 28 %; Mono,Macrophage,Mesothelial 52 %; Neutrophils, Fluid 20 %
--- NOTE | 2025-02-17 11:58 | Electrocardiogram Report ---
Test Reason : Blood Pressure : */* mmHG Vent. Rate : 113 BPM Atrial Rate : 113 BPM P-R Int : 172 ms QRS Dur : 90 ms QT Int : 268 ms P-R-T Axes : 76 39 76 degrees QTcB Int : 367 ms Sinus tachycardia Possible Left atrial enlargement Borderline ECG When compared with ECG of 16-Sep-2023 16:54, Non-specific change in ST segment in Inferior leads T wave inversion now evident in Anterior leads Confirmed by Pedro Steinberg ([id number]) on 02/17/2025 11:58:34 AM Referred By: REFERRED SELF Confirmed By: Pedro Steinberg
[2025-02-17 12:42] LABS: Appearance Urine Turbid (Clear); Bacteria Urine Automated None Seen (None Seen); Cast Urine Automated 0-2 /lpf (0-2); Epithelial Cell Urine Auto 0-2 /hpf (0-2); Glucose Urine UA Negative (Negative); RBC Urine Automated >20 /hpf (0-2); WBC Urine Automated 0-5 /hpf (0-5)
--- NOTE | 2025-02-17 14:51 | Advance Care Plan Prog Note ---
Advanced Care Planning Note Date of Discussion February 17, 2025 ACP Discussion Diagnoses requiring ACP discussion: Stage IV soft tissue sarcoma A [id number] discussion with the patient, , and children regarding the patient's advanced care planning took place during this hospitalization on the above date. The discussion included the explanation and discussion of advance directives and associated forms/documents, as well as the patient's current code status. We also discussed at length the patient's medical conditions (both acute and chronic), general prognosis, treatment options, and goals of care. The following summarizes the discussion: the patient and family are under standing of the terminal nature of the patient's condition. This conversation was had in conjunction with Hesham Gray MD, of the Pulmonology service. The patient's goals are comfort, and to remain out of the hospital as much as possible to manage his associated symptoms. The patient and family would like more time to discuss, but anticipate engaging with hospice either during this hospitalization or within the weeks following eventual discharge. Status Resuscitation Status DNR/DNI No Resuscitation Total Time I spent a total of 90 minutes was spent on this discussion, including counseling, answering questions, and completing, if any, pertinent advanced care planning forms/documents.
[2025-02-17 16:26] LABS: Hematocrit (blood only) 20.2 % (42.0-52.0); Hemoglobin 6.6 g/dL (14.0-18.0)
[2025-02-17] MEDS: DIGOXIN 0.125 MG TAB PO SCH (17:49)
[2025-02-17] MEDS: FUROSEMIDE 40 MG/4 ML VIAL IV ONE (18:04)
[2025-02-17 23:29] LABS: Hematocrit (blood only) 25.7 % (42.0-52.0); Hemoglobin 8.6 g/dL (14.0-18.0)
[2025-02-18 06:22] LABS: Hematocrit (blood only) 26.8 % (42.0-52.0); Hemoglobin 8.9 g/dL (14.0-18.0); Immature Granulocytes # (auto) 0.03 K/uL (0.01-0.20); Immature Granulocytes % (auto) 0.6 %; Mean Corpuscular Hemoglobin 27.9 pg (25.0-34.0); Mean Corpuscular Volume 84.0 fL (80.0-100.0); Platelet Count 125 K/uL (130-400); RDW Standard Deviation 51.9 fL (36.4-46.3); Red Blood Count 3.19 M/uL (4.70-6.10); White Blood Count 5.16 K/ul (4.8-10.8)
[2025-02-18 06:45] LABS: Alanine Aminotransferase 10.0 U/L (7-52); Albumin Globulin Ratio 1.1 (0.9-2); Albumin Level 2.8 gm/dl (3.4-5.0); Alkaline Phosphatase 124.0 U/L (34-104); Anion Gap 10.0 (3-11); Bilirubin,Total 2.0 mg/dl (0.2-1.0); Blood Urea Nitrogen 20.0 mg/dl (6-23); Calcium 8.3 mg/dl (8.6-10.3); Carbon Dioxide 28.0 mmol/L (21-32); Chloride 103.0 mmol/L (98-107); Creatinine Clr Calc Pharmacy 173.7 ml/min; Globulin 2.6 gm/dl (2.5-4.0); Glucose 92.0 mg/dl (70-99(Fasting)); Magnesium 1.9 mg/dl (1.7-2.4); Potassium 3.1 mmol/L (3.5-5.1); Sodium 141.0 mmol/L (136-145); Total Protein 5.4 gm/dl (6.0-8.3)
[2025-02-18 06:46] LABS: INR 1.3 (0.9-1.1); Partial Thromboplastin Time 30 Seconds (21-31); Prothrombin Time 13.1 Seconds (9.0-12.0)
--- NOTE | 2025-02-18 08:11 | Pulmonology Progress Note ---
Date of Service February 18, 2025 Assessment & Plan (1) Pleural effusion on right: (2) Anemia requiring transfusions: (3) Metastatic sarcoma to lung: Plan Impression: 69-year-old male with widely metastatic sarcoma including pleural mets and associated pleural effusion admitted with shortness of breath found to be significantly anemic. He underwent thoracentesis yesterday with removal of some bloody fluid, cytology pending but expect to be consistent with malignancy Recommendations: 1. Dyspnea: Likely multifactorial. Images were reviewed with the patient and his family yesterday. Multiple reasons for shortness of breath including anemia, probable malignant pleural effusion, and significant pleural-based mets compressing pulmonary parenchyma. Despite thoracentesis, he remains significantly tachypneic with increased work of breathing 2. Pleural effusion: Exudate, likely malignant although cytology pending. Discussed yesterday options with patient and family moving forward. These would include transition to complete palliative/comfort care with options for potential repeat thoracentesis should the fluid reaccumulate. PleurX catheter was also presented as an option although given the lack of significant improvement with the thoracentesis, and the increased risk of bleeding due to the multiple pleural-based metastases, unclear that this will offer him significant benefit 3. Hypoxemia: Multifactorial. Continue supplemental oxygen. The patient has supplemental oxygen set up at home. 4. Patient appears to be actively entering the dying process. He is elected to not pursue additional chemotherapy. I think some of his expectations are likely unable to be met. I think he is slowly coming to the realization that he may be entering the final phase of his life. I think his life expectancy would be measured in weeks at best Will try and meet with the patient's later today as well. Admission and Anticipated Discharge Date Admission Date: February 16, 2025 Subjective Patient seen and examined. EMR reviewed. The patient states he slept poorly due to being interrupted frequently last night. In addition he had issues with nocturia. He thinks his breathing is about the same. He is having difficulty maintaining a conversation this morning and remains visibly tachypneic with increased work of breathing. Review of Systems 2 Review of Systems: All systems reviewed & are unremarkable except as noted in Subjective Physical Exam 2 Constitutional: + ill appearing and + thin Neck: trachea midline, no thyromegaly Respiratory: + labored breathing and + tachypneic Auscultation: + diminished lung sounds Cardiovascular: RRR, no murmur, no edema Gastrointestinal (Abdomen): normal bowel sounds, soft, nontender, no hepatosplenomegaly Musculoskeletal: Extremities: extremities normal to inspection Skin: no rashes, warm and dry Lymphatic: no cervical lymphadenopathy Results & Data Results & Data Vital Signs (Past 12 Hours) Vital Signs Temp Pulse Pulse Resp BP BP Pulse Ox 02/18/25 07:56 123 H 02/18/25 07:38 37.5 C 132 H 38 H 140/86 93 02/18/25 05:30 122 H 24 127/78 02/18/25 03:50 36.9 C 122 H 24 132/78 94 02/18/25 02:07 24 121/73 92 02/17/25 23:35 36.5 C 117 H 20 136/73 93 02/17/25 22:21 02/17/25 21:42 116 H 02/17/25 21:14 02/17/25 21:13 36.5 C 114 H 20 127/80 95 02/17/25 20:40 36.5 C 122 H 20 131/78 96 Pulse Ox O2 Del Method O2 Del Method O2 Flow Rate O2 Flow Rate 02/18/25 07:56 02/18/25 07:38 Nasal Cannula 02/18/25 05:30 02/18/25 03:50 Nasal Cannula 1 02/18/25 02:07 Nasal Cannula 1 02/17/25 23:35 Nasal Cannula 1 02/17/25 22:21 92 Nasal Cannula 1 02/17/25 21:42 02/17/25 21:14 Nasal Cannula 1 02/17/25 21:13 1 02/17/25 20:40 1 Laboratory Results 02/18/25 06:01 02/18/25 06:01 Pleural fluid studies: Differential: 20% neutrophils, 28% lymphocytes, 52% mesothelial cells pH 7.46 Total protein less than 3 LDH 944 Glucose 121 Gram stain moderate white blood cells with no organisms, culture pending Cytology pending PG Care Time/CCT Total # of Minutes Spent Total Time Spent with Patient: Total time spent is greater than 50% in coordination of care (as documented) at patient's floor/unit and/or counseling patient: Coding Level of Care Code 48758 SUB INP/OBS CARE 2/35MIN Diagnoses Pleural effusion on right J90 Anemia requiring transfusions D64.9 Metastatic sarcoma to lung C78.00; C49.9
--- NOTE | 2025-02-18 09:54 | Palliative Care Consultation ---
Date of Consultation February 18, 2025 Assessment & Plan (1) Dyspnea and respiratory abnormalities: (2) Palliative care by specialist: Introduced Palliative Medicine and explained our role in advanced care planning, symptom management and navigation through the progression of life limiting disease. Patient and/or family were receptive to palliative services for goals of care discussions. Reviewed we are different from hospice, a home health nurse visiting service. (3) Counseling regarding goals of care: met with pt and his at bedside, to discuss pt values and goals for 30 min. We discussed at length the patient's acute and chronic medical conditions, general prognosis, treatment options, and goals of care. patient shared that he had previously been on hospice, but he started to feel better and decided to pursue life prolonging treatments. He and his shared that they had a negative experience with [facility] and they do not wish to use them again. List of local hospice agencies supplied. Discussed hospice benefit: an interdisciplinary program offered by nurses, nurses aides, social workers, chaplains and a medical scientific officer for patients with a terminal condition and a life expectancy of less than 6 months. Hospice care focuses on quality of life when a cure is no longer possible, or the burdens of treatment outweigh the benefits. Discussed that they will not receive curative treatments, but will receive medicine that enhances quality of life, such as treatment for high blood pressure, rapid heart rate, or anxiety. Hospice care includes pain and symptom management, emotional support, medications and medical supplies, coaching for caregivers, grief support, and may include special services like speech and physical therapy when needed. Hospice also provides a 24/7 call service. Hospice care will also make short-term inpatient care available when pain or symptoms become too difficult to manage at home or when caregivers need respite time. Hospice care can be provided wherever the patient lives, includingpersonal care homes or nursing homes. Hospice care is provided by a team that focuses on the patients needs. The team usually includes clergy, home health aides, hospice physicians, nurses, social workers, trained volunteers, and other specialized therapists if needed. A patients personal physician may also be included. Although hospice provides a lot of support, if the patient lives at home, the day-to-day care is provided by the [facility] [place] or paid home health aides. Also discussed engaging palliative foundation funded Conscious Dying Coaching with Rev Nory Mena. I reviewed that Rev Mena offers assistance on non clinical issues, supporting patients as they consider, navigate and become clear on what is most important for their end of life. Rev Mena helps patients align how they are currently living with the vision they see for yourself at the end, then identify and set goals, along with action steps for yourself to fulfill that vision. The focus is on the 5 domains of life: Spiritual, emotional, physical, mental, and practical. They would like this engagement with Rev Mena and I have provided pt's with Rev Mena's contact i yvrose. Reviewed that End of life coaching and planning begins with 10 structured sessions we like to call, the best three months. Based on 10 total meetings over a 3-4 month period. Average meeting time 60-90 minutes. 2 meetings per domain. Over a three month period, there is support for the family and patient to identify their vision, current reality and steps to be taken to implement life fulfillment and care wishes in the spiritual, emotional, mental, physical and practical domains of life. This service includes: Best Three Months End-of-Life Care Coaching and Planning with Family, Patient and Co- coordination with Medical/Hospice Care Providers. They are agreeable to this service, contact information shared with pt's . (4) Need for comfort care: patient requests hospice referral, CM made aware. he shared that he would like to continue current level of care until arrangements are made for hospice home with hospice. Plan DNR/DNI plan for dc to home with hospice History of Present Illness Reason for Consultation: goals of care Requesting Physician: Jonathan Farooq DO Attending Physician: Jonathan Farooq DO History of Present Illness Mr Regalado is a 69-year-old male with a past medical history including metastatic sarcoma to lungs undergoing chemotherapy at [facility], atrial fibrillation/flutter, BPH, hypercholesterolemia, anemia, pleural effusion, and hypertension. He presents to the emergency department on 02/16/25 with shortness of breath and dyspnea on exertion present over the past number of weeks, worsening over the past 2 days. Workup in the emergency department including laboratories with hemoglobin of 5.4, with report of family noting blood in urine. Patient has had intermittent diarrhea and constipation, typically precipitated by taking a bowel regimen after getting constipated. His overall food intake has been significantly reduced, with subsequent weight loss. He was admitted for medical management. Allergies Allergy/AdvReac Type Severity Reaction Status Date / Time Iodinated Contrast Media Allergy Intermediate TICKLE IN Verified 02/16/25 18:03 THROAT "TOLD NOT TO TAKE" Home Medications Medication Instructions Recorded Confirmed Type apixaban 5 mg tablet (Eliquis) 5 mg PO BID 09/28/20 02/16/25 History rosuvastatin 10 mg tablet 10 mg PO HS 09/16/23 02/16/25 History vit C 250 mg-E 90 mg-zinc 40 1 tab PO AMPM 09/16/23 02/16/25 History mg-copper 1 pe-ifdqzy-chotha chew tablet (PreserVision AREDS-2) cholecalciferol (vitamin D3) 10 50 mcg PO DAILY 02/16/25 02/16/25 History mcg/drop (400 unit/drop) oral drops coQ10 (ubiquinol) 200 mg capsule 200 mg PO DAILY 02/16/25 02/16/25 History digoxin 125 mcg (0.125 mg) tablet 125 mcg PO DAILY 02/16/25 02/16/25 History diltiazem HCl 30 mg tablet 30 mg PO DAILY 02/16/25 02/16/25 History tamsulosin 0.4 mg capsule 0.4 mg PO DAILY 02/16/25 02/16/25 History Patient History Medical History (Updated 02/18/25 @ 19:21 by LOLA Renteria) Actinic keratosis Gross hematuria Surgical History (Updated 02/17/25 @ 10:39 by Garcia Gonzales DO) S/P lobectomy of lung Social History Smoking Status: Never smoker Hx Alcohol Use: No Hx Substance Use: No Preferred Language: Kyrgyz Communication Ability: Effective Tape Weaver Required: No Beliefs That Will Affect Care: None Current Living Situation: Spouse Feels Safe at Home: Yes Safety Concerns: Feels Safe At This Time Assistive Devices: Oxygen - Continuous and Wheelchair Review of Systems Review of Systems: All systems reviewed & are unremarkable except as noted in HPI & below Physical Exam Constitutional: + ill appearing, + cachectic, + frail ap pearing and cooperative; + uncomfortable Respiratory: Auscultation: + diminished lung sounds, + crackles and + wheezes Cardiovascular: RRR, no murmur, no edema Gastrointestinal (Abdomen): normal bowel sounds, soft, nontender, no hepatosplenomegaly Musculoskeletal: generalized wweakness Skin: no rashes, warm and dry Neurologic: PERRL, EOMI, accommodation nl, no face palsy, no dysarthria Psychiatric: A+Ox3, euthymic affect Results & Data Vital Signs (Past 12 Hours) Vital Signs Temp Pulse Pulse Resp BP Pulse Ox Pulse Ox 02/18/25 07:56 123 H 02/18/25 07:38 37.5 C 132 H 38 H 140/86 93 02/18/25 05:30 122 H 24 127/78 02/18/25 03:50 36.9 C 122 H 24 132/78 94 02/18/25 02:07 24 121/73 92 02/17/25 23:35 36.5 C 117 H 20 136/73 93 02/17/25 22:21 92 O2 Del Method O2 Del Method O2 Flow Rate O2 Flow Rate 02/18/25 07:56 02/18/25 07:38 Nasal Cannula 02/18/25 05:30 02/18/25 03:50 Nasal Cannula 1 02/18/25 02:07 Nasal Cannula 1 02/17/25 23:35 Nasal Cannula 1 02/17/25 22:21 Nasal Cannula 1 Laboratory Results Abnormal lab results 02/16/25 02/17/25 02/17/25 Range/Units 18:29 12:06 16:08 RBC (4.70-6.10) M/uL Hgb 6.6 L* (14.0-18.0) g/dL Hct 20.2 L* (42.0-52.0) % RDW Std Deviation (36.4-46.3) fL RDW Coeff of Librado (11.5-14.5) % Plt Count (130-400) K/uL Lymph # (Auto) (1.20-3.40) K/uL [place] # (Auto) (0.11-0.59) K/uL PT (9.0-12.0) Seconds INR (0.9-1.1) Potassium (3.5-5.1) mmol/L Creatinine (0.6-1.4) mg/dl BUN/Creatinine Ratio (10-20) Calcium (8.6-10.3) mg/dl Total Bilirubin (0.2-1.0) mg/dl AST (13-39) U/L Alkaline Phosphatase (34-104) U/L Total Protein (6.0-8.3) gm/dl Albumin (3.4-5.0) gm/dl Urine Appearance Turbid A (Clear) Ur Specific [place] 1.032 H (1.000-1.030) Urine Protein 1+ H (Negative) Urine Ketones Trace H (Negative) Urine Blood 1+ H (Negative) Urine Bilirubin 1+ H (Negative) Urine RBC (Auto) >20 H (0-2) /hpf Crossmatch See Detail 02/17/25 02/18/25 Range/Units 23:03 06:01 RBC 3.19 L (4.70-6.10) M/uL Hgb 8.6 L 8.9 L (14.0-18.0) g/dL Hct 25.7 L 26.8 L (42.0-52.0) % RDW Std Deviation 51.9 H (36.4-46.3) fL RDW Coeff of Librado 18.9 H (11.5-14.5) % Plt Count 125 L D (130-400) K/uL Lymph # (Auto) 0.22 L (1.20-3.40) K/uL [place] # (Auto) 0.65 H (0.11-0.59) K/uL PT 13.1 H (9.0-12.0) Seconds INR 1.3 H (0.9-1.1) Potassium 3.1 L D (3.5-5.1) mmol/L Creatinine 0.37 L (0.6-1.4) mg/dl BUN/Creatinine Ratio 54.1 H (10-20) Calcium 8.3 L (8.6-10.3) mg/dl Total Bilirubin 2.0 H (0.2-1.0) mg/dl AST 10 L (13-39) U/L Alkaline Phosphatase 124 H (34-104) U/L Total Protein 5.4 L (6.0-8.3) gm/dl Albumin 2.8 L (3.4-5.0) gm/dl Urine Appearance (Clear) Ur Specific [place] (1.000-1.030) Urine Protein (Negative) Urine Ketones (Negative) Urine Blood (Negative) Urine Bilirubin (Negative) Urine RBC (Auto) (0-2) /hpf Crossmatch Diagnostic Findings Chest CT 02/16/25 16:29 CT chest without contrast. History: Extensive sarcoma. Evaluate for pneumonia. Comparison: Correlation earlier same day plain film. Technique: Helical CT imaging of the chest performed without IV contrast Dose reduction techniques were achieved by using automatic exposure control and/or adjustment of mA and/or kV according to patient size and/or use of iterative reconstruction technique. Findings: [employer] film demonstrates no abnormality. Lung windows demonstrate numerous bilateral noncalcified pulmonary nodules and a few masses most consistent with metastatic disease. Motion limits portions of the evaluation. Mild ground glass densities and increased reticular markings of the left upper lobe. Absence of right upper lobe consistent with pneumonectomy changes. Soft tissue windows demonstrate superior vena cava stent. Large right-sided pleural effusion. There is a loculated fluid collection along the ventral right hemithorax what appears to be pleural space. Continuation changes consistent with nodules and masses at the level of the pleura along the right pulmonary base most worrisome for for metastases. This extends into the region of the right upper abdominal quadrant. Soft tissue masslike process along the ventral aspect of the left kidney noted. Additional mediastinal nodules. Bone windows demonstrate no acute osseous process. Impression: 1. Numerous bilateral nodules and masses consistent with metastatic disease with likely mediastinal and pleural involvement. Additional indeterminant left renal mass. 2. Ground glass densities with prominent interstitial markings left pulmonary apex. Inflammatory or infectious pneumonitis at this level not excluded. 3. Large right-sided pleural effusion with additional loculated pocket along the ventral right hemithorax. Please see above for details. Electronically signed by Ilya Guzman 02-16-2025 6:08 PM Chest X-Ray 02/17/25 09:17 SINGLE VIEW CHEST CLINICAL HISTORY: Status post thoracentesis. FINDINGS: 2 AP, portable, upright chest radiographs are compared to chest x-ray and chest CT dated 02/16/2025. A stent is again seen within the superior vena cava. The heart is top normal for projection and noting atherosclerotic calcification of the thoracic aorta. There is persistent elevation of the right hemidiaphragm with a layering right pleural effusion. No pneumothorax is seen post procedure. Innumerable pulmonary nodules are again noted and consistent with extensive pulmonary metastatic disease. The skeletal structures are osteopenic. The bony thorax is grossly intact. IMPRESSION: 1. No pneumothorax is identified post procedure. 2. There is a residual right pleural effusion. 3. Multifocal pulmonary metastatic disease is again noted. ACT 112: Negative or not required by law. Electronically signed by: Yrn Leo M.D. 02/17/2025 9:40 AM Medications Administered Current Inpatient Medications Acetaminophen (Acetaminophen 325 Mg Tab) 650 mg PO Q4H PRN PRN Reason: Pain or Fever Stop: 03/18/25 22:20 Albuterol (Albut/Ipratrop 3mg/0.5mg Neb 3 Ml Vial) 3 ml NEB Q2H PRN; Protocol PRN Reason: dyspnea Stop: 03/18/25 20:31 Digoxin (Digoxin 0.125 Mg Tab) 0.125 mg PO DAILY@1600 [facility] Stop: 03/19/25 15:59 Last Admin: 02/17/25 17:49 Dose: 0.125 mg Diltiazem HCl (Diltiazem Hcl 30 Mg Tab) 30 mg PO DAILY FLOR Stop: 03/21/25 08:59 Piperacillin Sod/Tazobactam Sod (Zosyn) 4.5 gm in 100 mls @ 25 mls/hr IV Q8H FLOR; Protocol Stop: 02/24/25 01:59 Last Infusion: 02/18/25 06:51 Dose: Infused Pantoprazole Sodium (Protonix) 40 mg in 10 mls @ 5 mls/min IV DAILY FLOR Stop: 03/19/25 08:59 Last Admin: 02/17/25 09:36 Dose: 5 mls/min Metoprolol Tartrate (Metoprolol Tartrate 1 Mg/Ml Vial) 5 mg IV Q4 FLOR Stop: 03/20/25 11:59 Multivitamins/Minerals (Cerovite Adv Formula Tab) 1 tab PO DAILY FLOR Stop: 03/18/25 22:25 Last Admin: 02/17/25 09:37 Dose: 1 tab Ondansetron HCl (Ondansetron Inj 2 Mg/Ml 2 Ml Vial) 4 mg IV Q6H PRN PRN Reason: NAUSEA/VOMITING Stop: 03/18/25 22:20 Rosuvastatin Calcium (Rosuvastatin Calcium 10 Mg Tab) 10 mg PO HS FLOR Stop: 03/18/25 22:20 Last Admin: 02/17/25 20:45 Dose: 10 mg Tamsulosin HCl (Tamsulosin Hcl 0.4 Mg Cap) 0.4 mg PO DAILY FLOR Stop: 03/19/25 08:59 Last Admin: 02/17/25 09:37 Dose: 0.4 mg Vitamin D (Cholecalciferol 25 Mcg (1000 Units) Tab) 50 mcg PO DAILY FLOR Stop: 03/19/25 08:59 Last Admin: 02/17/25 09:37 Dose: 50 mcg PG Care Time/CCT Total # of Minutes Spent Total Time Spent with Patient: Total time spent is greater than 50% in coordination of care (as documented) at patient's floor/unit and/or counseling patient: Advanced Care Planning 52722 Advanced Care Planning 30 [place] [address] IN/OBS CONSULT LVL 4,60M Patient Type New History Expanded Problem Focused Exam Expanded Problem Focused Medical Decision Making Moderate Complexity Diagnoses Dyspnea and respiratory abnormalities R06.00; R06.89 Palliative care by specialist Z51.5 Counseling regarding goals of care Z71.89 Need for comfort care Additional Codes Advanced Care Planning - 35020 Advanced Care Planning 30 Min: 87963 Advanced Care Planning 30 Min ([id number])
--- NOTE | 2025-02-18 10:38 | Electrocardiogram Report ---
Test Reason : Blood Pressure : */* mmHG Vent. Rate : 133 BPM Atrial Rate : 133 BPM P-R Int : 170 ms QRS Dur : 92 ms QT Int : 266 ms P-R-T Axes : 78 -15 82 degrees QTcB Int : 395 ms Sinus tachycardia with Premature atrial complexes Right atrial enlargement Abnormal ECG When compared with ECG of 16-Feb-2025 15:46, Premature atrial complexes are now Present Confirmed by Pedro Steinberg ([id number]) on 02/18/2025 10:38:24 AM Referred By: REFERRED SELF Confirmed By: Pedro Steinberg
[2025-02-18] MEDS: METOPROLOL TARTRATE 1 MG/ML VIAL IV STA (10:41)
[2025-02-18] MEDS ORDERED: Nursing to Pharmacy Communication SCH (10:45)
[2025-02-18] MEDS: POTASSIUM CHLORIDE CRTAB 20 MEQ TABCR PO STA (11:00)
--- NOTE | 2025-02-18 11:27 | Hospitalist Progress Note ---
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 Profoundly low hgb on arrival at 5.6. s/p 2 units PRBCs w/ improvement to 8.9. Thrombocytopenia improved to 125. Chest CT 02/16 - large right sided pleural effusion w/ additional loculated pocket along ventral right hemithorax. numerous b/l nodules/masses consistent w/ metastatic dz. Pulm consulted --> s/p thoracentesis w/ 900 cc bloody fluid removed. Current Life expectancy per pulm is weeks at best. Following thoracentesis he required 2 units of platelets to assist w/ hemostasis. Bleeding precipitated by friable malignant tissue. No improvement in breathing symptoms following thoracentesis Can continue IV Zosyn ACP note completed by Dr. Gonzales on 02/17 - Patient's current goals are comfort & to remain out of the hospital as much as possible. Patient & family would prefer more time to discuss but anticipate engaging w/ hospice during this hospital stay or within weeks following discharge. Palliative care consulted for goals of care discussion 02/18, appreciate recommendations. #Permanent atrial fibrillation Has been persistently tachycardic since admission, compensatory Continue Digoxin, On Lopressor 5mg IV q4h - minimal improvement in HR despite medications. Hold Eliquis secondary to bleeding as described above. #hypokalemia K low at 3.1, s/p PO repletion. AM BMP #BPH - Flomax #HLD - statin DVT prophylaxis: held in the setting of anemia, thrombocytopenia + bleeding w/ thoracentesis. Code: DNR/DNI Admission and Anticipated Discharge Date Admission Date: February 16, 2025 Supervising Physician Co-Signing Physician Notes chart reviewed, case d/w Nisha Christine PA-C. as above [place] Denise was seen & examined this morning. He was resting in bed, was visibly tachypneic. He reports that he did not sleep well last night & was being woke up this morning. He reported that he was fatigued and wanted to sleep. He denied feeling short of breath or chest pain at time of encounter. Physical Exam Physical Exam: General: moderate distress; tachypneic. BP 113/78, P110, resp 30 Resp: labored breathing. diminished lung sounds b/l. CV: tachycardic, no murmur. Extremities: no edema Neuro: A&O x3 Skin: intact, no lesions noted Results & Data Results & Data Vital Signs (Past 12 Hours) Vital Signs Temp Pulse Pulse Resp BP BP Pulse Ox 02/18/25 11:07 123 H 91/71 L 02/18/25 11:00 120 H 28 H 95 02/18/25 10:58 114 H 118/77 02/18/25 10:41 142 H 02/18/25 07:56 123 H 02/18/25 07:38 37.5 C 132 H 38 H 140/86 93 02/18/25 05:30 122 H 24 127/78 02/18/25 03:50 36.9 C 122 H 24 132/78 94 02/18/25 02:07 24 121/73 92 02/17/25 23:35 36.5 C 117 H 20 136/73 93 O2 Del Method O2 Flow Rate 02/18/25 11:07 02/18/25 11:00 Nasal Cannula 1 02/18/25 10:58 02/18/25 10:41 02/18/25 07:56 02/18/25 07:38 Nasal Cannula 02/18/25 05:30 02/18/25 03:50 Nasal Cannula 1 02/18/25 02:07 Nasal Cannula 1 02/17/25 23:35 Nasal Cannula 1 PG Care Time/CCT Total # of Minutes Spent Total Time Spent with Patient: Total time spent is greater than 50% in coordination of care (as documented) at patient's floor/unit and/or counseling patient: Coding Level of Care Code 45871 SUB INP/OBS CARE 3/50MIN Diagnoses Symptomatic anemia D64.9 Soft tissue sarcoma of right thigh C49.21 Thrombocytopenic D69.6 Permanent atrial fibrillation I48.21 S/P lobectomy of lung Z90.2 Hemothorax on right J94.2"
[2025-02-18] MEDS: METOPROLOL TARTRATE 1 MG/ML VIAL IV SCH (11:50)
[2025-02-18] MEDS: ONDANSETRON INJ 2 MG/ML 2 ML VIAL IV PRN (13:12)
[2025-02-18] MEDS ORDERED: METOPROLOL TARTRATE 1 MG/ML VIAL IV PRN (16:03)
[2025-02-19] MEDS: ALBUMIN 25% 12.5 GM/50 ML VIAL IV ONE (02:03)
[2025-02-19] MEDS: LACTATED RINGER'S 250 ML IV ONE (06:08)
[2025-02-19 06:35] LABS: Hematocrit (blood only) 22.9 % (42.0-52.0); Hemoglobin 7.5 g/dL (14.0-18.0); Immature Granulocytes # (auto) 0.02 K/uL (0.01-0.20); Immature Granulocytes % (auto) 0.4 %; Mean Corpuscular Hemoglobin 28.7 pg (25.0-34.0); Mean Corpuscular Volume 87.7 fL (80.0-100.0); Platelet Count 145 K/uL (130-400); RDW Standard Deviation 56.1 fL (36.4-46.3); Red Blood Count 2.61 M/uL (4.70-6.10); White Blood Count 4.67 K/ul (4.8-10.8)
[2025-02-19 07:00] LABS: Polychromasia 2+
[2025-02-19 07:02] LABS: Albumin Level 2.7 gm/dl (3.4-5.0); Anion Gap 8.0 (3-11); Bilirubin,Total 1.4 mg/dl (0.2-1.0); Calcium 8.0 mg/dl (8.6-10.3); Carbon Dioxide 28.0 mmol/L (21-32); Chloride 102.0 mmol/L (98-107); Magnesium 1.8 mg/dl (1.7-2.4); Potassium 3.3 mmol/L (3.5-5.1); Sodium 138.0 mmol/L (136-145)
[2025-02-19 07:04] LABS: INR 1.3 (0.9-1.1); Partial Thromboplastin Time 33 Seconds (21-31); Prothrombin Time 13.7 Seconds (9.0-12.0)
[2025-02-19 07:08] LABS: Alanine Aminotransferase 7.0 U/L (7-52); Albumin Globulin Ratio 1.3 (0.9-2); Alkaline Phosphatase 94.0 U/L (34-104); Blood Urea Nitrogen 19.0 mg/dl (6-23); Creatinine Clr Calc Pharmacy 189.0 ml/min; Globulin 2.1 gm/dl (2.5-4.0); Glucose 82.0 mg/dl (70-99(Fasting)); Total Protein 4.8 gm/dl (6.0-8.3)
[2025-02-19] MEDS: POTASSIUM CHLORIDE CRTAB 20 MEQ TABCR PO STA (08:51)
--- NOTE | 2025-02-19 09:48 | Pulmonology Progress Note ---
Date of Service February 19, 2025 Assessment & Plan (1) Pleural effusion on right: (2) Anemia requiring transfusions: (3) Metastatic sarcoma to lung: Plan Impression: 69-year-old male with widely metastatic sarcoma including pleural mets and associated pleural effusion admitted with shortness of breath found to be significantly anemic. He underwent thoracentesis with removal of some bloody fluid, cytology pending but expect to be consistent with malignancy. Do not have much improvement after thoracentesis and remains dyspneic. His performance status is poor and his tumors appear to be progressing. Patient family have elected to set up home hospice next week. He does have some new unilateral left arm swelling Recommendations: 1. Dyspnea: Likely multifactorial. Would manage expectantly at this point in time. If he has increasing symptoms and wants to pursue additional pleural procedures, would be happy to arrange these in the outpatient setting if needed 2. Pleural effusion: Exudate, likely malignant although cytology pending. See above 3. Hypoxemia: Multifactorial. Continue supplemental oxygen. The patient has supplemental oxygen set up at home. 4. Unilateral arm swelling. Check for DVT. If present, will need to have discussion with patient and family regarding options moving forward. Keep arm elevated Pulmonary available to see if needed Admission and Anticipated Discharge Date Admission Date: February 16, 2025 Subjective Patient seen and examined. EMR reviewed. The patient reports that he slept well last night. His pain is well-controlled. He is not having any breathing issues. His appetite remains poor. He has noted some unilateral arm swelling on the left with some seeping of fluid could. He is not experiencing any chest pain or palpitations. No fevers chills or night sweats. Did meet with palliative care. Family members are in attendance. They are planning on setting up home hospice for him on Friday Review of Systems Review of Systems: All systems reviewed & are unremarkable except as noted in Subjective Physical Exam Constitutional: + ill appearing and + thin Neck: trachea midline, no thyromegaly Respiratory: + labored breathing and + tachypneic Auscultation: + diminished lung sounds Cardiovascular: RRR, no murmur, no edema Gastrointestinal (Abdomen): normal bowel sounds, soft, nontender, no hepatosplenomegaly Musculoskeletal: Extremities: extremities normal to inspection Skin: no rashes, warm and dry Lymphatic: no cervical lymphadenopathy Results & Data Results & Data Vital Signs (Past 12 Hours) Vital Signs Temp Pulse Pulse Resp BP Pulse Ox O2 Del Method 02/19/25 02:58 109/61 02/19/25 01:57 91/52 L 02/19/25 01:54 82/50 L 02/18/25 23:11 37.0 C 112 H 18 94/57 L 95 Nasal Cannula 02/18/25 22:01 110 H O2 Flow Rate 02/19/25 02:58 02/19/25 01:57 02/19/25 01:54 02/18/25 23:11 3 02/18/25 22:01 PG Care Time/CCT Total # of Minutes Spent Total Time Spent with Patient: Total time spent is greater than 50% in coordination of care (as documented) at patient's floor/unit and/or counseling patient: Coding Level of Care Code 18931 SUB INP/OBS CARE 2/35MIN Diagnoses Pleural effusion on right J90 Anemia requiring transfusions D64.9 Metastatic sarcoma to lung C78.00; C49.9
--- NOTE | 2025-02-19 11:06 | Hospitalist Progress Note ---
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 Profoundly low hgb on arrival at 5.6. s/p 2 units PRBCs. hgb stable at 7.5. Thrombocytopenia improved to 145. Chest CT 02/16 - large right sided pleural effusion w/ additional loculated pocket along ventral right hemithorax. numerous b/l nodules/masses consistent w/ metastatic dz. Pulm consulted --> s/p thoracentesis on 02/17 w/ 900 cc bloody fluid removed. Current Life expectancy per pulm is weeks at best. Following thoracentesis he required 2 units of platelets to assist w/ hemostasis. Bleeding precipitated by friable malignant tissue. Can continue IV Zosyn ACP note completed by Dr. Gonzales on 02/17 - Patient's current goals are comfort & to remain out of the hospital as much as possible. Patient & family would prefer more time to discuss but anticipate engaging w/ hospice during this hospital stay or within weeks following discharge. Palliative care consulted for goals of care discussion 02/18- plan is to medically optimize patient prior to discharge on 02/21 with home hospice. #Permanent atrial fibrillation Has been persistently tachycardic since admission, compensatory Continue Digoxin. Lopressor prn if HR is sustained > 130. s/p dose of IV albumin overnight secodnary to hypotension. Hold Eliquis secondary to bleeding as described above. #hypokalemia K low at 3.3, s/p PO repletion. AM BMP #RUE edema w/ significant edema & ecchymosis of RUE when compared to LUE. Doppler US 02/19 neg for DVT in RUE Continue to monitor, elevated RUE on pillow while in bed. #BPH - Flomax #HLD - statin DVT prophylaxis: held in the setting of anemia, thrombocytopenia + bleeding w/ thoracentesis. Code: DNR/DNI Admission and Anticipated Discharge Date Admission Date: February 16, 2025 Supervising Physician Co-Signing Physician Notes The patient was not seen by me. The chart was reviewed. Case discussed with GUANACO Bravo. Agree with assessment and plan Subjective Howie was seen & examined this morning. He reports he is feeling okay today. Denies any shortness of breath. He has unilateral arm swelling of his right arm along with a significant area of ecchymosis. States that this has happened in the past during his hospital stay at [facility]. Discussed discharge plans that include returning home on hospice on 02/21. Physical Exam Physical Exam: General: NAD, VS: BP 119/66; P110; R18; T36.7C Resp: normal respiratory effort, lungs diminished b/l Extremities: Moves all extremities, + edema of RUE w/ ecchymosis Neuro: A&O x3, Skin: intact Results & Data Results & Data Vital Signs (Past 12 Hours) Vital Signs Temp Pulse Resp BP BP Pulse Ox O2 Del Method 02/19/25 10:17 36.5 C 104 H 20 127/57 L 94 Nasal Cannula 02/19/25 02:58 109/61 02/19/25 01:57 91/52 L 02/19/25 01:54 82/50 L 02/18/25 23:11 37.0 C 112 H 18 94/57 L 95 Nasal Cannula O2 Flow Rate 02/19/25 10:17 2 02/19/25 02:58 02/19/25 01:57 02/19/25 01:54 02/18/25 23:11 3 PG Care Time/CCT Total # of Minutes Spent Total Time Spent with Patient: Total time spent is greater than 50% in coordination of care (as documented) at patient's floor/unit and/or counseling patient: Coding Level of Care Code 41184 SUB INP/OBS CARE 2/35MIN Diagnoses Symptomatic anemia D64.9 Soft tissue sarcoma of right thigh C49.21 Thrombocytopenic D69.6 Permanent atrial fibrillation I48.21 S/P lobectomy of lung Z90.2 Hemothorax on right J94.2"
--- NOTE | 2025-02-19 14:40 | Ultrasound Report ---
Clinical History: Rule out DVT. Technique: Doppler sonography was performed of the right arm veins Findings: The right jugular, subclavian, axillary, brachial, cephalic, basilic, radial, and ulnar veins all appear patent with normal anechoic lumens and full compressibility. Expected Doppler waveforms were noted. No definite soft tissue mass or fluid collection is seen. Impression: No evidence of right arm deep venous thrombosis Electronically signed by Adolfo Curiel 02-19-2025 2:39 PM
[2025-02-19] MEDS: ACETAMINOPHEN 325 MG TAB PO PRN (20:16)
[2025-02-20 06:54] LABS: Hematocrit (blood only) 23.7 % (42.0-52.0); Hemoglobin 7.5 g/dL (14.0-18.0); Mean Corpuscular Hemoglobin 27.8 pg (25.0-34.0); Mean Corpuscular Volume 87.8 fL (80.0-100.0); Platelet Count 195 K/uL (130-400); RDW Standard Deviation 56.3 fL (36.4-46.3); Red Blood Count 2.70 M/uL (4.70-6.10); White Blood Count 4.85 K/ul (4.8-10.8)
[2025-02-20 07:14] LABS: Anion Gap 6.0 (3-11); Blood Urea Nitrogen 16.0 mg/dl (6-23); Calcium 8.1 mg/dl (8.6-10.3); Carbon Dioxide 31.0 mmol/L (21-32); Chloride 102.0 mmol/L (98-107); Creatinine Clr Calc Pharmacy 229.5 ml/min; Glucose 88.0 mg/dl (70-99(Fasting)); Potassium 3.4 mmol/L (3.5-5.1); Sodium 139.0 mmol/L (136-145)
--- NOTE | 2025-02-20 08:41 | Pulmonology Progress Note ---
Date of Service February 20, 2025 Assessment & Plan (1) Pleural effusion on right: (2) Anemia requiring transfusions: (3) Metastatic sarcoma to lung: Plan Impression: 69-year-old male with widely metastatic sarcoma including pleural mets and associated pleural effusion admitted with shortness of breath found to be significantly anemic. He underwent thoracentesis with removal of some bloody fluid, cytology pending but expect to be consistent with malignancy. Do not have much improvement after thoracentesis and remains dyspneic. His performance status is poor and his tumors appear to be progressing. Patient family have elected to set up home hospice next week. He does have some new unilateral left arm swelling, negative ultrasound Recommendations: 1. Dyspnea: Likely multifactorial. Would manage expectantly at this point in time. If he has increasing symptoms and wants to pursue additional pleural procedures, would be happy to arrange these in the outpatient setting if needed 2. Pleural effusion: Exudate, likely malignant although cytology pending. See above 3. Hypoxemia: Multifactorial. Continue supplemental oxygen. The patient has supplemental oxygen set up at home. 4. Unilateral arm swelling. No DVT. Suspect related to potential lymphatic involvement. Keep arm elevated is much as possible. Pulmonary available to see if needed. Patient family have my contact information. Would be happy to assist in any management moving forward if needed. Feel free to contact us with questions Admission and Anticipated Discharge Date Admission Date: February 16, 2025 Subjective Patient seen and examined. EMR reviewed. The patient reports that he slept poorly last night. He attributes most of this to sleeping excessively in the 24 hours prior. His shortness of breath is at baseline. His pain is adequately controlled. He has minimal appetite. He is going to try and get up out of bed to recliner today. Ultrasound of the upper extremity was completed and showed no DVT. The swelling is improved with elevation of the arm Hospice is being set up at home for Friday Review of Systems 2 Review of Systems: All systems reviewed & are unremarkable except as noted in Subjective Physical Exam 2 Constitutional: + ill appearing and + thin Neck: trachea midline, no thyromegaly Respiratory: + labored breathing and + tachypneic Auscultation: + diminished lung sounds Cardiovascular: RRR, no murmur, no edema Gastrointestinal (Abdomen): normal bowel sounds, soft, nontender, no hepatosplenomegaly Musculoskeletal: Extremities: extremities normal to inspection Skin: no rashes, warm and dry Lymphatic: no cervical lymphadenopathy Results & Data Results & Data Vital Signs (Past 12 Hours) Vital Signs Temp Pulse Pulse Resp BP Pulse Ox O2 Del Method 02/20/25 08:32 36.7 C 101 H 18 131/71 95 Nasal Cannula 02/20/25 02:22 36.5 C 102 H 30 H 130/72 95 Nasal Cannula 02/19/25 23:18 36.7 C 107 H 18 132/71 94 Nasal Cannula 02/19/25 23:00 110 H O2 Flow Rate 02/20/25 08:32 2 02/20/25 02:22 2 02/19/25 23:18 2 02/19/25 23:00 Laboratory Results 02/20/25 06:08 02/20/25 06:08 Diagnostic Findings Ultrasound of the upper extremity shows no evidence of thrombosis PG Care Time/CCT Total # of Minutes Spent Total Time Spent with Patient: Total time spent is greater than 50% in coordination of care (as documented) at patient's floor/unit and/or counseling patient: Coding Level of Care Code 78835 SUB INP/OBS CARE 2/35MIN Diagnoses Pleural effusion on right J90 Anemia requiring transfusions D64.9 Metastatic sarcoma to lung C78.00; C49.9
[2025-02-20] MEDS: POTASSIUM CHLORIDE CRTAB 20 MEQ TABCR PO STA (08:59)
[2025-02-20] MEDS ORDERED: LORazepam 1 MG TAB PO PRN (10:57)
--- NOTE | 2025-02-20 11:15 | Hospitalist Progress Note ---
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 Profoundly low hgb on arrival at 5.6. s/p 2 units PRBCs. hgb stable at 7.5. Thrombocytopenia improved to 195. Chest CT 02/16 - large right sided pleural effusion w/ additional loculated pocket along ventral right hemithorax. numerous b/l nodules/masses consistent w/ metastatic dz. Pulm consulted --> s/p thoracentesis on 02/17 w/ 900 cc bloody fluid removed. Following thoracentesis he required 2 units of platelets to assist w/ hemostasis. Bleeding precipitated by friable malignant tissue. IV Zosyn was started on admission, continue. ACP note completed by Dr. Gonzales on 02/17 - Patient's current goals are comfort & to remain out of the hospital as much as possible. Patient & family would prefer more time to discuss but anticipate engaging w/ hospice during this hospital stay or within weeks following discharge. Palliative care consulted for goals of care discussion 02/18- plan is to medically optimize patient prior to discharge Comfort medications sent to the pharmacy on 02/20, anticipate discharge home with hospice on 02/21. #Permanent atrial fibrillation Has been persistently tachycardic since admission, compensatory Continue Digoxin. Lopressor prn if HR is sustained > 130. s/p dose of IV albumin overnight secodnary to hypotension. Hold Eliquis secondary to bleeding as described above. #hypokalemia K low at 3.3, s/p PO repletion. AM BMP #RUE edema- improved w/ significant edema & ecchymosis of RUE when compared to LUE. Doppler US 02/19 neg for DVT in RUE Continue to monitor, elevated RUE on pillow while in bed. #BPH - Flomax DVT prophylaxis: held in the setting of anemia, thrombocytopenia + bleeding w/ thoracentesis. Code: DNR/DNI Admission and Anticipated Discharge Date Admission Date: February 16, 2025 Supervising Physician Co-Signing Physician Notes The patient was not seen by me. The chart was reviewed. Case discussed with GUANACO Bravo. Agree with assessment and plan Subjective Howie was seen & examined this morning. He was sitting in his chair at time of encounter. He reports he had poor sleep last night and kept waking up every hour. Reports he is agreeable to take something to help with his anxiety. Discussed his discharge plans & he reports he has morphine at home. Physical Exam Physical Exam: General: NAD, VS: BP 123/66; P110; R18; T36.8 Resp: normal respiratory effort, lungs diminished CV: tachycardic Extremities: Moves all extremities, RUE edema. Neuro: A&O x3 Skin: intact, no lesions noted Results & Data Results & Data Vital Signs (Past 12 Hours) Vital Signs Temp Pulse Resp BP Pulse Ox O2 Del Method O2 Flow Rate 02/20/25 08:32 36.7 C 101 H 18 131/71 95 Nasal Cannula 2 02/20/25 02:22 36.5 C 102 H 30 H 130/72 95 Nasal Cannula 2 02/19/25 23:18 36.7 C 107 H 18 132/71 94 Nasal Cannula 2 PG Care Time/CCT Total # of Minutes Spent Total Time Spent with Patient: Total time spent is greater than 50% in coordination of care (as documented) at patient's floor/unit and/or counseling patient: Coding Level of Care Code 21532 SUB INP/OBS CARE 2/35MIN Diagnoses Symptomatic anemia D64.9 Soft tissue sarcoma of right thigh C49.21 Thrombocytopenic D69.6 Permanent atrial fibrillation I48.21 S/P lobectomy of lung Z90.2 Hemothorax on right J94.2"
[2025-02-21 02:17] VITALS: O2SAT 95
[2025-02-21 06:48] LABS: Hematocrit (blood only) 23.5 % (42.0-52.0); Hemoglobin 7.5 g/dL (14.0-18.0); Mean Corpuscular Hemoglobin 28.3 pg (25.0-34.0); Mean Corpuscular Volume 88.7 fL (80.0-100.0); Platelet Count 287 K/uL (130-400); RDW Standard Deviation 57.9 fL (36.4-46.3); Red Blood Count 2.65 M/uL (4.70-6.10); White Blood Count 5.42 K/ul (4.8-10.8)
[2025-02-21 07:39] LABS: Anion Gap 8.0 (3-11); Calcium 8.1 mg/dl (8.6-10.3); Carbon Dioxide 29.0 mmol/L (21-32); Chloride 101.0 mmol/L (98-107); Potassium 3.7 mmol/L (3.5-5.1); Sodium 138.0 mmol/L (136-145)
[2025-02-21 07:44] LABS: Blood Urea Nitrogen 11.0 mg/dl (6-23); Creatinine Clr Calc Pharmacy 229.5 ml/min; Glucose 81.0 mg/dl (70-99(Fasting))
[2025-02-21 07:46] VITALS: RESP 30; TEMP 97.9
--- NOTE | 2025-02-21 07:52 | Discharge Summary ---
Discharge Summary Date of Service February 21, 2025 Principal Dx & Hospital Course #1 = Principal Diagnosis (1) Symptomatic anemia: (2) Soft tissue sarcoma of right thigh: (3) Thrombocytopenic: (4) Permanent atrial fibrillation: (5) S/P lobectomy of lung: (6) Hemothorax on right: Plan In summary this is a 69-year-old male who presents with progressive dyspnea on exertion and shortness of breath at rest associated with fatigue found to have severe anemia requiring blood transfusion on 02/16/2025 #Stage IV Metastatic Soft tissue Sarcoma | Anemia | Pleural effusion Follows w/ [facility] for ongoing cancer treatment on outpatient basis. Profoundly low hgb on arrival at 5.6. s/p 2 units PRBCs. hgb stable at 7.5. Thrombocytopenia improved to 195. Chest CT 02/16 - large right sided pleural effusion w/ additional loculated pocket along ventral right hemithorax. numerous b/l nodules/masses consistent w/ metastatic dz. Pulm consulted --> s/p thoracentesis on 02/17 w/ 900 cc bloody fluid removed. Following thoracentesis he required 2 units of platelets to assist w/ hemostasis. Bleeding precipitated by friable malignant tissue. IV Zosyn was started on admission, continue. ACP note completed by Dr. Gonzales on 02/17 - Patient's current goals are comfort & to remain out of the hospital as much as possible. Patient & family would prefer more time to discuss but anticipate engaging w/ hospice during this hospital stay or within weeks following discharge. Palliative care consulted for goals of care discussion 02/18- plan is to medically optimize patient prior to discharge Comfort medications sent to the pharmacy on 02/20, anticipate discharge home with hospice on 02/21. #Permanent atrial fibrillation Has been persistently tachycardic since admission, compensatory Continue Digoxin. Lopressor prn if HR is sustained > 130. s/p dose of IV albumin overnight secodnary to hypotension. Hold Eliquis secondary to bleeding as described above. #hypokalemia K low at 3.3, s/p PO repletion. AM BMP #RUE edema- improved w/ significant edema & ecchymosis of RUE when compared to LUE. Doppler US 02/19 neg for DVT in RUE Continue to monitor, elevated RUE on pillow while in bed. #BPH - Flomax Day of discharge 02/21: Patient is tachycardic around 103 bpm and tachypneic at 30 RPM at time of discharge; SpO2 95% on 2L NC. Mr. Regalado is in good spirits this morning. He reports he is not having any pain at this time. Normally has pain in his right rib cage, but he feels well this morning. He also reports his breathing is good, and the swelling in his right arm has come down substantially over the course of his hospital stay. He feels like he is not hungry, and has not been eating breakfast this morning, but reports that he usually eats much better at home. He is anxious to return home today if possible. Patient is on supplemental oxygen at baseline (2L NC). No CPAP at night. Overall, he feels well, reports he is asymptomatic besides a dry cough, and is ready to return home on hospice today if possible. He lives with his , who is available to transport him today if needed. He also has 2 sons who are currently visiting him: Eduardo, who lives in [place], and Elmo, who lives in [place]. ROS: Patient endorses dry cough, oscillation between loose stool and constipation, and swelling in the right arm. Patient denies fever, chills, night sweats, dizziness/lightheadedness when standing, headache, chest pain, chest palpitations, SOB, pleuritic CP, hemoptysis,, abdominal pain, nausea, vomiting, diarrhea, or blood in the urine or stool. Disposition: Discharge home with hospice Notes For Next Care Provider Patient admitted for shortness of breath in the setting of metastatic sarcoma with mets to lungs. Hgb 5.6 on arrival s/p 2 units PRBCs. Hgb is now stable at 7.5 over the course of several days prior to discharge. Covered with IV Zosyn x 4 days while in the hospital, as patient's chest CT read a "loculated pocket along ventral right hemothorax"; however, no leukocytosis; afebrile; patient denies infectious symptoms upon discharge. Will defer additional antibiotics upon discharge. Patient being discharged on hospice. Case management currently working to set up equipment delivery and transport today. Prescription for hospice signed prior to discharge. Upon discharge, we will plan to discontinue many of his long-term medications (the main ones being Eliquis, diltiazem, and rosuvastatin). Additionally, Atreante and Pinedaul have been sent to the patient's pharmacy. Remainder per hospice care. Please reach out with any questions or concerns. Admission HPI Per Admitting Provider The patient is a 69-year-old male with a past medical history including metastatic sarcoma to lungs undergoing chemotherapy at [facility], atrial fibrillation/flutter, BPH, hypercholesterolemia, anemia, pleural effusion, and hypertension. He presents to the emergency department with shortness of breath and dyspnea on exertion present over the past number of weeks, worsening over the past 2 days. Workup in the emergency department including laboratories with hemoglobin of 5.4, with report of family noting blood in urine. Patient has had intermittent diarrhea and constipation, typically precipitated by taking a bowel regimen after getting constipated. His overall food intake has been significantly reduced, with subsequent weight loss. He his last meal today was granola and oatmeal at breakfast. EKG and rhythm monitor showed sinus tachycardia and 115-118 range. His last dose of Eliquis was the morning of 02/15. He has been on a course of prednisone a few months ago, to stimulate appetite, but was discontinued due to concern for long-term use of prednisone. The only travel the patient has had is back and forth to [facility]. [facility] The ED has pending orders for 2 units of PRBCs to be transfused. Admission Exam Per Admitting Provider The patient is awake, alert and oriented 3, appears thin and fatigued, normocephalic and atraumatic, lying in bed and in no acute distress. HEENT--PERRL, EOMI, mucous membranes and oropharynx dry. Neck--supple. No JVD. No bruits. Thyroid normal, trachea midline, no adenopathy. Heart--normal S1 and S2. No murmurs, rubs or gallops. Lungs--clear bilaterally, no respiratory distress, no accessory muscle use. Abdomen--normal bowel sounds and soft. Nontender. Nondistended Extremities-- No edema. There are good distal pulses b/l. Dermatologic--skin is dry, no rashes. Neurologic--cranial nerves II through XII grossly intact. Rheumatologic--normal range of motion. Psychiatric--normal affect. Discharge Exam General: no acute distress; pleasant affect; non-toxic appearing; cooperative; frail-appearing; SpO2 95% on 2L NC HEENT: normocephalic, atraumatic; PERRLA; vision and hearing intact Neck: supple; trachea midline Skin: warm, dry without signs of tenting; no cyanosis; hematoma noted on the medial aspect of the right arm with swelling (see photo below); NTP; not warm to touch CV: chest wall NTP; irregularly irregular rhythm around 100 to 110 bpm; S1/S2 normal; no murmurs/rubs/gallops; pulses intact and symmetric at radial, DP, and PT Lungs: no acute respiratory distress; symmetrical chest wall expansion; clear breath sounds across all lung calderon w/o adventitious sounds; no wheezing ABD: Soft, NTP; BS present; no rebound/guarding; no distention MSK: no tics or fasciculations; no edema noted in the LEs b/l, nonerythematous Neuro: A&Ox3; normal mood and affect; fluent speech; sensation intact and symmetric in the LEs b/l Discharge Plan Discharge Items Patient Disposition: Hospice - Home Reason For Visit: ANEMIA REQUIRING TRANSFUSION,PL EFFUSION,AFIB ON A Discharge Diagnosis: Anemia, Pleural effusion, Stage IV Metastatic Sarcoma Activity: Resume your previous activity Non-emergency contact: Primary Care Provider Call non-emergency contact if: you have any medication questions, your symptoms worsen and your pain is not controlled Follow-up/Referrals: Howie Clark MD [Primary Care Provider] - Diet: Regular Addtl Attending Provider Instructions: Mr. Regalado, Harinder were recently hospitalized secondary to shortness of breath that had worsened two days prior to admission. You were found to have a low hemoglobin and were given blood transfusions. You were also found to have a pleural effusion and underwent a thoracentesis by Dr. Gray. Upon discharge, you are returning home with hospice. You mentioned you had morphine at home and additional comfort medications will be prescribed on discharge including Ativan and Robinul, instructions for these are listed below. Medications: Your medication list has been reviewed and reconciled upon discharge to ensure accuracy and continuity of care. An updated list of all your medications is included with your hospital discharge paperwork. Please review this list closely, and make note of any changes. You may use 1mg of Ativan every 6 hours to help with anxiety. You may use 1mg of Robinul every 8 hours to help with any pulmonary secretions. Please use the previously prescribed morphine for shortness of breath. Medications that have been discontinued on discharge include Vitamin D, Rosuvastatin, PreserVision, Diltiazem, and Eliquis. The remainder of your medications may be continued which should include Digoxin and Tamsulosin at your discretion. Take your medications as instructed; do not skip a dose of your medicines. Make sure all of your doctors know every medicine you are taking (including plgi-cex-blwzkch medicines, vitamins, and supplements). Call your primary care provider before taking any new medicines (including over- the-counter medicines, vitamins, and supplements), because some of these may interact with your current medications, or may make your symptoms worse. Tell your primary care provider if you cannot afford your medications. Activity: You can do normal everyday activities as your body allows. Take rest breaks if you feel tired. Do not overexert. Stop activity if you have pain, shortness of breath or feel dizzy. CONTACT YOUR HOSPICE AGENCY if you experience any of the following: Shortness of breath or difficulty breathing Fevers or chills Feeling tired with normal activity or experiencing dizziness or fainting Difficulty following your treatment plan, or difficulty taking medications Severe abdominal pain or nausea/vomiting Severe chest pain, or chest pain that radiates (moves) to your jaw or arm Sudden, severe shortness of breath or difficulty breathing Thank you for allowing us to participate in your care. Pending Studies at Discharge: No Stand-Alone Forms: My [facility] Medications and DC Order Prescriptions: New lorazepam 1 mg tablet 1 mg PO Q6H PRN (Reason: anxiety) Qty: 14 0RF glycopyrrolate [Robinul] 1 mg tablet 1 mg PO TID PRN (Reason: secretions) Qty: 30 0RF Continued PreserVision AREDS-2 250-90-40-1 mg Tablet,Chewable 1 tab PO AMPM Rx Instructions: PER PT'S "TAKE NORMALLY WHEN FEELING OKAY" tamsulosin 0.4 mg capsule 0.4 mg PO DAILY digoxin 125 mcg (0.125 mg) tablet 125 mcg PO DAILY Discontinued Eliquis 5 mg tablet 5 mg PO BID rosuvastatin 10 mg tablet 10 mg PO HS diltiazem HCl 30 mg tablet 30 mg PO DAILY coQ10 (ubiquinol) 200 mg Capsule 200 mg PO DAILY Rx Instructions: PER PT'S "TAKE NORMALLY WHEN FEELING OKAY" cholecalciferol (vitamin D3) 10 mcg/drop (400 unit/drop) Drops 50 mcg PO DAILY Discharge Orders: Discharge Order (Routine); Ordered 02/21/25 Ordered By: Mathew Alvares/Other Patient Handouts: Starting Hospice, Hospice Managing Pain, Hospice Care Dyspnea Admission Data Admit Date/Time: 02/16/25 20:35 Attending Provider: Praveen Ramirez Admit Provider: Ramirez Francis Primary Care Provider: Howie Clark Other Providers: Hesham Gray; Gilbert Meyer Other Interventions: Discharge Summary Assessment (RN) Last Done: 02/21/25 10:05 Hospital Stay Data Consultations 02/16/25 19:22 ED Decision to Admit Stat 02/16/25 22:21 Consult Pulmonology Routine 02/18/25 07:53 Consult Palliative Care Routine Diagnostic Imagining Performed 02/16/25 16:29 CT chest diagnostic wo con Stat 02/19/25 09:45 US venous doppler UE RT Routine Pending Results Patient Have Any Pending Studies at Discharge: No Discharge Instructions Given to Patient (Per Discharging Provider) Mr. Regalado, Harinder were recently hospitalized secondary to shortness of breath that had worsened two days prior to admission. You were found to have a low hemoglobin and were given blood transfusions. You were also found to have a pleural effusion and underwent a thoracentesis by Dr. Gray. Upon discharge, you are returning home with hospice. You mentioned you had morphine at home and additional comfort medications will be prescribed on discharge including Ativan and Robinul, instructions for these are listed below. Medications: Your medication list has been reviewed and reconciled upon discharge to ensure accuracy and continuity of care. An updated list of all your medications is included with your hospital discharge paperwork. Please review this list closely, and make note of any changes. You may use 1mg of Ativan every 6 hours to help with anxiety. You may use 1mg of Robinul every 8 hours to help with any pulmonary secretions. Please use the previously prescribed morphine for shortness of breath. Medications that have been discontinued on discharge include Vitamin D, Rosuvastatin, PreserVision, Diltiazem, and Eliquis. The remainder of your medications may be continued which should include Digoxin and Tamsulosin at your discretion. Take your medications as instructed; do not skip a dose of your medicines. Make sure all of your doctors know every medicine you are taking (including lzvr-mbv-ryaaqgd medicines, vitamins, and supplements). Call your primary care provider before taking any new medicines (including over- the-counter medicines, vitamins, and supplements), because some of these may interact with your current medications, or may make your symptoms worse. Tell your primary care provider if you cannot afford your medications. Activity: You can do normal everyday activities as your body allows. Take rest breaks if you feel tired. Do not overexert. Stop activity if you have pain, shortness of breath or feel dizzy. CONTACT YOUR HOSPICE AGENCY if you experience any of the following: Shortness of breath or difficulty breathing Fevers or chills Feeling tired with normal activity or experiencing dizziness or fainting Difficulty following your treatment plan, or difficulty taking medications Severe abdominal pain or nausea/vomiting Severe chest pain, or chest pain that radiates (moves) to your jaw or arm Sudden, severe shortness of breath or difficulty breathing Thank you for allowing us to participate in your care. Supervising Physician Co-Signing Physician Notes I did not see or examine the patient. I verified all murcia points and agree with Mathew Longoria PA-C with the following exceptions and/or additions: None Total Time Total Time Spent Total Time Spent (In Minutes): 25 Coding Level of Care Code 54127 IN/OBS DISCH 30 MIN/LESS Diagnoses Symptomatic anemia D64.9 Soft tissue sarcoma of right thigh C49.21 Thrombocytopenic D69.6 Permanent atrial fibrillation I48.21 S/P lobectomy of lung Z90.2 Hemothorax on right J94.2
[2025-02-21 10:14] VITALS: BP 109/61; PULSE 113
== END 2025-02-21 13:26 | disposition hospice, home (50) | DRG 812 ==
LOC: ED 15:34 → 2E 20:35 → SUATTDRO 20:35 → 2E 22:20
DX: Z66 Do not resuscitate; C78.00 Secondary malignant neoplasm of unspecified lung; J94.2 Hemothorax; I10 Essential (primary) hypertension; Z51.5 Encounter for palliative care; J91.0 Malignant pleural effusion; Z91.041 Radiographic dye allergy status; Z79.01 Long term (current) use of anticoagulants; N40.0 Benign prostatic hyperplasia without lower urinary tract symptoms; D64.9 Anemia, unspecified; E87.6 Hypokalemia; E78.2 Mixed hyperlipidemia; Z79.899 Other long term (current) drug therapy; C49.21 Malignant neoplasm of connective and soft tissue of right lower limb, including hip; R60.0 Localized edema; I48.21 Permanent atrial fibrillation; I48.92 Unspecified atrial flutter